=== PATIENT | male | born 1955 | race Caucasian/White ===

== ENCOUNTER 2019-12-23 09:17 | Inpatient (IN) | payer MEDICAID ==
[2019-12-23] VITALS (19 sets, daily range): BP systolic 95–141; BP diastolic 54–79
[~2019-12-23] VITALS: Ht 172.7 cm; Wt 106.0 kg
--- NOTE | 2019-12-23 11:23 | NUR ---
Received a call from Gabe air crew bringing pt to [facility]. Vitals, 122/73, 38RR, 79HR irregular afib, 94% 4L, 1127 99/76, RR40, 68 Irregular Afib, 97% 4L NC. Charge aware. Charge called edging supervisor recommending mikali to monitor.
--- NOTE | 2019-12-23 11:25 | NUR ---
Patient in room . I have received report from Joel GARCÍA [facility] and had the opportunity to ask questions and assume patient care.
[2019-12-23] MEDS ORDERED: ALBU2.5V10 IH (12:29)
[2019-12-23] MEDS ORDERED: ATOR20TA66 PO (12:29)
[2019-12-23] MEDS ORDERED: CEPH250T PO (12:30)
[2019-12-23] MEDS ORDERED: CYCL-394 PO (12:31)
[2019-12-23] MEDS ORDERED: ENOX40DI8 SQ (12:32)
[2019-12-23] MEDS ORDERED: FERR325T28 PO (12:32)
[2019-12-23] MEDS ORDERED: FAMO40TA58 PO (12:32)
[2019-12-23] MEDS ORDERED: ADV50250 IH (12:33)
[2019-12-23] MEDS ORDERED: HYDR-3965 PO (12:34)
[2019-12-23] MEDS ORDERED: IPRA3AMP31 IH (13:19)
[2019-12-23] MEDS ORDERED: SYN0.088T PO (13:19)
[2019-12-23] MEDS ORDERED: MAGN400T39 PO (13:20)
[2019-12-23] MEDS ORDERED: MUPI22OI30 TP (13:21)
[2019-12-23] MEDS ORDERED: ONDA-103 PO (13:22)
[2019-12-23] MEDS ORDERED: MORP2SYR (13:23)
[2019-12-23] MEDS ORDERED: PANT-47 PO (13:24)
[2019-12-23] MEDS ORDERED: POTA10TA19 PO (13:25)
[2019-12-23] MEDS ORDERED: PHEN95TA44 PO (13:25)
[2019-12-23] MEDS ORDERED: POLY119P2 PO (13:25)
[2019-12-23] MEDS ORDERED: TIOT18CA3 IH (13:26)
[2019-12-23] MEDS: normal saline 1000ml 1,000 ML IV SCH ×2 (13:47→21:39)
[2019-12-23] MEDS ORDERED: morphine 2 MG/ML inj. syringe IV PRN ×2 (13:50→16:05)
[2019-12-23 13:57] LABS: BASOPHILS # (AUTO) 0.1 X10'3 (0-0.2); BASOPHILS % (AUTO) 0.8 % (0-1); EOSINOPHILS # (AUTO) 0.8 X10'3 (0-0.9); EOSINOPHILS % (AUTO) 7.1 % (0-6); HEMATOCRIT 25.9 % (42.0-52.0); HEMOGLOBIN 8.8 g/dl (14.0-17.9); LYMPHOCYTES # (AUTO) 1.6 X10'3 (1.1-4.8); LYMPHOCYTES % (AUTO) 13.7 % (21-51); MEAN CORPUSCULAR HEMOGLOBIN 37.5 PG (27.0-31.0); MEAN CORPUSCULAR HGB CONC 33.9 g/dL (33.0-36.5); MEAN CORPUSCULAR VOLUME 110.4 FL (78-98); MEAN PLATELET VOLUME 8.1 FL (7.4-10.4); MONOCYTES # (AUTO) 1.3 X10'3 (0-0.9); MONOCYTES % (AUTO) 11.6 % (2-12); NEUTROPHILS # (AUTO) 7.6 X10'3 (1.8-7.7); NEUTROPHILS % (AUTO) 66.8 % (42-75); PLATELET COUNT 558 X10'3 (140-440); RED BLOOD COUNT 2.35 X10'6 (4.70-6.10); RED CELL DISTRIBUTION WIDTH 17.5 % (11.5-14.5); WHITE BLOOD COUNT 11.4 X10'3 (4.5-11.0)
[2019-12-23 14:10] LABS: PARTIAL THROMBOPLASTIN TIME 31 SECONDS (22-32)
[2019-12-23 14:14] LABS: ALANINE AMINOTRANSFERASE 8 U/L (12-78); ALBUMIN 1.5 G/DL (3.4-5.0); ALBUMIN/GLOBULIN RATIO 0.4 (1.1-1.5); ALKALINE PHOSPHATASE 98 IU/L (46-116); ANION GAP 4 (8-16); ASPARTATE AMINO TRANSFERASE 13 U/L (10-37); BILIRUBIN,TOTAL 0.6 MG/DL (0.1-1.0); BLOOD UREA NITROGEN 6 MG/DL (7-18); BUN/CREATININE RATIO 12.2 (5.4-32.0); CALCIUM 7.9 MG/DL (8.5-10.1); CHLORIDE 104 MMOL/L (99-107); CREATININE 0.49 MG/DL (0.60-1.10); GLUCOSE 82 MG/DL (70-104); POTASSIUM 4.1 MMOL/L (3.5-5.1); SODIUM 139 MMOL/L (135-145); TOTAL CARBON DIOXIDE 31.3 MMOL/L (24-32); TOTAL PROTEIN 5.2 G/DL (6.4-8.2); eGFR > 90 ML/MIN
[2019-12-23 15:01] LABS: ANISOCYTOSIS 1+; PLATELET ESTIMATE INCREASED
[2019-12-23] MEDS ORDERED: ringers solution, lacted 1,000 ML IV SCH ×2 (16:03→17:42)
[2019-12-23] MEDS ORDERED: morphine 4 MG/ML inj SYRINge IV PRN (16:05)
[2019-12-23] MEDS ORDERED: fentaNYL/PF 50MCG/1 ML 2ML syringe IV PRN ×2 (16:05)
[2019-12-23] MEDS ORDERED: ondansetron/PF 4mg/2ml inj IV PRN ×2 (16:05→17:45)
[2019-12-23] MEDS ORDERED: labetalol 20mg/4ml (5mg/ml) syringe IV PRN (16:05)
[2019-12-23] MEDS ORDERED: hydrALAZINE 20mg/ml inj. IV PRN (16:05)
[2019-12-23] MEDS ORDERED: sugammadex 200mg/2ml injection IV ONE (16:47)
[2019-12-23] MEDS ORDERED: dexamethasone sod phosphate 4mg/ml inj. ONE (16:49)
[2019-12-23] MEDS ORDERED: LIDOcaine 2% (20mg/ml) 5ml vial ONE (16:49)
[2019-12-23] MEDS ORDERED: succinylcholine 20mg/ml inj IV ONE (16:49)
[2019-12-23] MEDS ORDERED: propofol inj 20 ML IV ONE ×2 (16:49)
[2019-12-23] MEDS ORDERED: rocuronium 10mg/ml inj IV ONE ×2 (16:49→17:50)
[2019-12-23] MEDS ORDERED: fentaNYL/PF 50MCG/1 ML 2ML syringe ONE (16:51)
[2019-12-23] MEDS ORDERED: sevoflurane 250ml liquid IH ONE (16:55)
[2019-12-23] MEDS ORDERED: ondansetron/PF 4mg/2ml inj ONE ×2 (16:55→17:11)
[2019-12-23] MEDS ORDERED: ceFOXitin 1000 MG inj ONE ×2 (16:56)
[2019-12-23] MEDS ORDERED: ipratropium/albuterol 3ml nebule IH ONE (17:45)
[2019-12-23] MEDS ORDERED: racepinephrine 11.25mg/0.5ml nebule NEB ONE (17:45)
[2019-12-23] MEDS ORDERED: albuterol 2.5 MG/3 ML nebule NEB ONE (17:45)
[2019-12-23] MEDS ORDERED: LIDOcaine 1% (10mg/ml) 2ml vial ONE (17:48)
--- NOTE | 2019-12-23 18:55 | NUR ---
Received from OR via BED, accompanied by Anesthesiologist DR WILLIS and report given by Anesthesiologist. PT SEDATED ON VENT, ABDOMEN W/MEDIPORE TAPE COVERING GAUZE RICHMOND LANDRY, MALIK CATHETER TO GRAVITY DRAIN W/ORANGE URINE IN BAG. Addendum: 12/23/19 at 1932 by Daxa Brown RN Amended: Links added.
[2019-12-23 19:15] LABS: ABG BASE EXCESS 1.8 mmol/L (-2.0-2.0); ABG HCO3 27.1 mmol/L (22.0-26.0); ABG OXYGEN SATURATION 96.1 % (94-97); ABG PCO2 (T) 44.6 mmHg (35.0-48.0); ABG PO2 (T) 81.7 mmHg (75.0-100.0); FCOHb 1.4 % (0.0-3.9); FMetHb 0.3 % (0.0-1.5); FO2Hb 94.5 % (94-97); PATIENT TEMPERATURE 36.6; PEEP 5 cm H2O; RESPIRATORY RATE 12 b/min; TIDAL VOLUME 700 mL; TOTAL HEMOGLOBIN 9.4 G/dl (14.0-18.0)
[2019-12-23] MEDS: FENTANYL-0.9 % NACL/PF 100 ML IV PRN (19:43)
[2019-12-23] MEDS: midazolam 100mg in NS 100ml 100 ML IV SCH (19:44)
--- NOTE | 2019-12-23 19:55 | NUR ---
Report called to receiving nurse. Transferred via BED ON CM, RT BAGGED PT, NO Belongings, RECEIVING RN AT BEDSIDE TO RECEIVE PT, VSS. Special Issues communicated to receiving nurse. YES. Addendum: 12/23/19 at 2013 by Daxa Brown RN Amended: Links added.
--- NOTE | 2019-12-23 20:20 | NUR ---
Pt arrived to room around 1954, report received from Daxa GARCÍA, pt placed on ICU monitor, good wave form for art line. pt tolerating vent well.
[2019-12-24] VITALS (24 sets, daily range): BP systolic 85–127; BP diastolic 55–90
[2019-12-24 02:57] LABS: BASOPHILS % (AUTO) 0.2 % (0-1); EOSINOPHILS % (AUTO) 0 % (0-6); HEMATOCRIT 28.4 % (42.0-52.0); HEMOGLOBIN 9.5 g/dl (14.0-17.9); LYMPHOCYTES # (AUTO) 0.5 X10'3 (1.1-4.8); LYMPHOCYTES % (AUTO) 2.9 % (21-51); MEAN CORPUSCULAR HEMOGLOBIN 37.1 PG (27.0-31.0); MEAN CORPUSCULAR HGB CONC 33.6 g/dL (33.0-36.5); MEAN CORPUSCULAR VOLUME 110.3 FL (78-98); MEAN PLATELET VOLUME 8.7 FL (7.4-10.4); MONOCYTES # (AUTO) 0.7 X10'3 (0-0.9); MONOCYTES % (AUTO) 3.8 % (2-12); NEUTROPHILS # (AUTO) 17.6 X10'3 (1.8-7.7); NEUTROPHILS % (AUTO) 93.1 % (42-75); PLATELET COUNT 601 X10'3 (140-440); RED BLOOD COUNT 2.57 X10'6 (4.70-6.10); RED CELL DISTRIBUTION WIDTH 17.5 % (11.5-14.5); WHITE BLOOD COUNT 18.9 X10'3 (4.5-11.0)
[2019-12-24 03:08] LABS: ALBUMIN 1.4 G/DL (3.4-5.0); ANION GAP 5 (8-16); BLOOD UREA NITROGEN 7 MG/DL (7-18); BUN/CREATININE RATIO 13.7 (5.4-32.0); CALCIUM 7.8 MG/DL (8.5-10.1); CHLORIDE 105 MMOL/L (99-107); CREATININE 0.51 MG/DL (0.60-1.10); GLUCOSE 118 MG/DL (70-104); POTASSIUM 4.8 MMOL/L (3.5-5.1); SODIUM 137 MMOL/L (135-145); TOTAL CARBON DIOXIDE 27.3 MMOL/L (24-32); eGFR > 90 ML/MIN
[2019-12-24] MEDS: normal saline 1000ml 1,000 ML IV SCH ×2 (04:05→22:53)
[2019-12-24] MEDS: midazolam 100mg in NS 100ml 100 ML IV SCH ×2 (04:06→13:30)
[2019-12-24] MEDS: FENTANYL-0.9 % NACL/PF 100 ML IV PRN ×3 (04:09→21:29)
--- NOTE | 2019-12-24 06:33 | NUR ---
Problems reprioritized. Patient report given, questions answered & plan of care reviewed with Levi GARCÍA.
--- NOTE | 2019-12-24 11:24 | NUR ---
Initial: Pt intubated s/p laparotomy oversew anastomotic leak, drain, and closure of abdominal wound per surgeon note. 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 Abdominal abscess found to have fecal contents and pt remains NPO pending consent for Ileostomy per EMR at this time. R NG in place to suction. MCV 110.3 w/ hx etoh per RN today; RD d/w MD regarding banana bag if agreeable given hx. Will continue to monitor for additional protein needs post-op. If Ileostomy pt will need diet ed once stable prior to discharge. Rec: 1. IF TF; Vital AF at 75ml/hr goal 2. IF TF; additional water flush per MD; Na 137 3. PALB Q /; daily wts 4. bowel care per rx 5. thiamin, folic, MVI supplementation for etoh hx 6. IF to have Ileostomy; diet ed once stable and appropriate prior to discharge Addendum: 12/24/19 at [address] Amended: Links added.
[2019-12-24] MEDS ORDERED: sevoflurane 250ml liquid IH ONE (13:40)
[2019-12-24] MEDS ORDERED: rocuronium 10mg/ml inj IV ONE ×2 (14:10)
[2019-12-24] MEDS ORDERED: 0.9 % SODIUM CHLORIDE 10 ML VIAL ONE ×2 (14:17→14:18)
[2019-12-24] MEDS ORDERED: ceFOXitin 1000 MG inj ONE ×2 (14:17)
[2019-12-24] MEDS ORDERED: bacitracin 15gm ointment TP ONE (15:01)
[2019-12-24] MEDS ORDERED: albuterol 2.5 MG/3 ML nebule NEB PRN (18:45)
[2019-12-24] MEDS ORDERED: ipratropium 0.5 MG/2.5ML nebule IH PRN (18:55)
[2019-12-24] MEDS: ipratropium/albuterol 3ml nebule IH SCH (20:36)
[2019-12-24] MEDS: budesonide 0.5mg/2ml UD nebule IH SCH (20:36)
[2019-12-24] MEDS: atorvastatin 20mg tablet PO SCH (20:42)
[2019-12-25] VITALS (24 sets, daily range): BP systolic 75–137; BP diastolic 45–79
[2019-12-25] MEDS: midazolam 100mg in NS 100ml 100 ML IV SCH ×2 (00:05→07:42)
[2019-12-25 03:21] LABS: BASOPHILS % (AUTO) 0.2 % (0-1); EOSINOPHILS % (AUTO) 0 % (0-6); HEMATOCRIT 28.2 % (42.0-52.0); HEMOGLOBIN 9.4 g/dl (14.0-17.9); LYMPHOCYTES % (AUTO) 5.4 % (21-51); MEAN CORPUSCULAR HEMOGLOBIN 37.1 PG (27.0-31.0); MEAN CORPUSCULAR HGB CONC 33.4 g/dL (33.0-36.5); MEAN PLATELET VOLUME 8.7 FL (7.4-10.4); MONOCYTES # (AUTO) 1.4 X10'3 (0-0.9); MONOCYTES % (AUTO) 8.1 % (2-12); NEUTROPHILS # (AUTO) 15.4 X10'3 (1.8-7.7); NEUTROPHILS % (AUTO) 86.3 % (42-75); PLATELET COUNT 520 X10'3 (140-440); RED BLOOD COUNT 2.54 X10'6 (4.70-6.10); RED CELL DISTRIBUTION WIDTH 17.3 % (11.5-14.5); WHITE BLOOD COUNT 17.9 X10'3 (4.5-11.0)
[2019-12-25 03:32] LABS: ALBUMIN 1.3 G/DL (3.4-5.0); ANION GAP 7 (8-16); BLOOD UREA NITROGEN 15 MG/DL (7-18); BUN/CREATININE RATIO 23.1 (5.4-32.0); CALCIUM 7.9 MG/DL (8.5-10.1); CHLORIDE 106 MMOL/L (99-107); CREATININE 0.65 MG/DL (0.60-1.10); GLUCOSE 108 MG/DL (70-104); SODIUM 139 MMOL/L (135-145); TOTAL CARBON DIOXIDE 26.4 MMOL/L (24-32); eGFR > 90 ML/MIN
[2019-12-25] MEDS: ipratropium/albuterol 3ml nebule IH SCH ×4 (03:34→21:04)
[2019-12-25 03:40] LABS: POTASSIUM 4.8 MMOL/L (3.5-5.1)
[2019-12-25 03:50] LABS: ABG BASE EXCESS -0.1 mmol/L (-2.0-2.0); ABG HCO3 24.9 mmol/L (22.0-26.0); ABG OXYGEN SATURATION 94.6 % (94-97); ABG PCO2 (T) 42.9 mmHg (35.0-48.0); ABG PO2 (T) 77.5 mmHg (75.0-100.0); FCOHb 1.5 % (0.0-3.9); FMetHb 0.3 % (0.0-1.5); FO2Hb 92.9 % (94-97); PATIENT TEMPERATURE 37.5; PEEP 5 cm H2O; RESPIRATORY RATE 12 b/min; TIDAL VOLUME 700 mL; TOTAL HEMOGLOBIN 9.1 G/dl (14.0-18.0)
[2019-12-25 04:10] LABS: PLATELET ESTIMATE INCREASED
[2019-12-25 04:11] LABS: ANISOCYTOSIS 1+
[2019-12-25 04:12] LABS: SCHISTOCYTES FEW; TARGET CELLS FEW
[2019-12-25 04:13] LABS: POLYCHROMASIA FEW
[2019-12-25 04:16] LABS: POIKILOCYTOSIS 1+; STOMATOCYTES 1+
--- NOTE | 2019-12-25 06:24 | NUR ---
Problems reprioritized. Patient report given, questions answered & plan of care reviewed with Levi GARCÍA.
[2019-12-25] MEDS: levoTHYROXINE 88mcg tablet PO SCH (07:41)
[2019-12-25] MEDS: ferrous sulfate 325mg tablet PO SCH (07:41)
[2019-12-25] MEDS: normal saline 1000ml 1,000 ML IV SCH ×2 (07:42→17:50)
[2019-12-25] MEDS: FENTANYL-0.9 % NACL/PF 100 ML IV PRN ×2 (07:43→18:45)
[2019-12-25] MEDS: budesonide 0.5mg/2ml UD nebule IH SCH ×2 (08:21→21:04)
[2019-12-25] MEDS ORDERED: dexmedetomidin/NS 400mcg/100ml 100 ML IV SCH (10:05)
[2019-12-25] MEDS: dexmedetomidine/D5W 100mL 100 ML IV SCH ×3 (11:16→23:58)
[2019-12-25] MEDS: vancomycin/NS 1 GM ADD-VANTAGE 250 ML X 1 DOSE IV SCH ×2 (12:27→21:09)
[2019-12-25] MEDS: thiamine inj. 100 MG, magnesium sulf injection 2 GM, MVI, adult No.4 with vit. K 10 ML ... IV SCH ×4 (12:28)
[2019-12-25] MEDS: folic acid 1mg/0.2ml inj IV SCH (12:28)
[2019-12-25] MEDS ORDERED: albumin (human) 25% 100 ML IV solution IV ONE (16:10)
[2019-12-25 16:15] LABS: ABG BASE EXCESS 0.1 mmol/L (-2.0-2.0); ABG HCO3 24.4 mmol/L (22.0-26.0); ABG OXYGEN SATURATION 90.9 % (94-97); ABG PCO2 (T) 38.2 mmHg (35.0-48.0); ABG PO2 (T) 60.7 mmHg (75.0-100.0); ALLEN'S TEST POSITIVE; FCOHb 1.7 % (0.0-3.9); FMetHb 0.3 % (0.0-1.5); FO2Hb 89.1 % (94-97); PEEP 5 cm H2O; RESPIRATORY RATE 12 b/min; TIDAL VOLUME 700 mL; TOTAL HEMOGLOBIN 12.2 G/dl (14.0-18.0)
[2019-12-25] MEDS: NORepinephrine 8mg/ 250ml NS 250 ML IV PRN (17:50)
[2019-12-25] MEDS: pantoprazole 40 MG vial IV SCH (17:50)
[2019-12-25] MEDS: piperacillin/tazobactam inj. 3.375 GM in NS 50ml IV SCH (17:50)
--- NOTE | 2019-12-25 18:30 | NUR ---
Patient in room ICU 2046. I have received report from Levi GARCÍA and had the opportunity to ask questions and assume patient care.
--- NOTE | 2019-12-25 19:50 | NUR ---
Per report from previous nurse, order was received to place PT on FloTrac. Both primary RN and Resource RN were at bedside attempting to trouble shoot the Arterial line in PT's LT radial. The wave form appeared dampened on the monitor. After report was received nursing went to assess the A-Line. After multiple attempts to save the line which included repositioning, replacing the drsg and repositioning, all attempts with no effect. The line would not draw. The line was then D/C'd. Drsg placed over site and manual pressure held until hemostasis achieved. VSS. Will continue to monitor.
[2019-12-25] MEDS: atorvastatin 20mg tablet PO SCH (21:08)
[2019-12-26] VITALS (24 sets, daily range): BP systolic 81–138; BP diastolic 50–76
[2019-12-26] MEDS: normal saline 1000ml 1,000 ML IV SCH ×3 (01:47→21:47)
[2019-12-26] MEDS: ipratropium/albuterol 3ml nebule IH SCH ×4 (03:13→20:53)
[2019-12-26 03:56] LABS: BASOPHILS % (AUTO) 0.2 % (0-1); EOSINOPHILS % (AUTO) 0.1 % (0-6); HEMOGLOBIN 7.2 g/dl (14.0-17.9); LYMPHOCYTES # (AUTO) 1.2 X10'3 (1.1-4.8); LYMPHOCYTES % (AUTO) 8.8 % (21-51); MEAN CORPUSCULAR HGB CONC 33.4 g/dL (33.0-36.5); MEAN CORPUSCULAR VOLUME 110.8 FL (78-98); MEAN PLATELET VOLUME 7.9 FL (7.4-10.4); MONOCYTES # (AUTO) 1.1 X10'3 (0-0.9); MONOCYTES % (AUTO) 7.9 % (2-12); NEUTROPHILS # (AUTO) 11.6 X10'3 (1.8-7.7); PLATELET COUNT 416 X10'3 (140-440); RED BLOOD COUNT 1.93 X10'6 (4.70-6.10)
[2019-12-26 04:02] LABS: ALANINE AMINOTRANSFERASE 13 U/L (12-78); ALBUMIN 1.4 G/DL (3.4-5.0); ALBUMIN/GLOBULIN RATIO 0.4 (1.1-1.5); ALKALINE PHOSPHATASE 71 IU/L (46-116); ANION GAP 5 (8-16); ASPARTATE AMINO TRANSFERASE 13 U/L (10-37); BILIRUBIN,TOTAL 0.4 MG/DL (0.1-1.0); BLOOD UREA NITROGEN 16 MG/DL (7-18); BUN/CREATININE RATIO 22.5 (5.4-32.0); CALCIUM 7.6 MG/DL (8.5-10.1); CHLORIDE 107 MMOL/L (99-107); CREATININE 0.71 MG/DL (0.60-1.10); GLUCOSE 120 MG/DL (70-104); MAGNESIUM 2.1 MG/DL (1.5-2.4); PHOSPHORUS 3.2 MG/DL (2.3-4.5); POTASSIUM 3.9 MMOL/L (3.5-5.1); SODIUM 140 MMOL/L (135-145); TOTAL CARBON DIOXIDE 27.7 MMOL/L (24-32); TOTAL PROTEIN 4.7 G/DL (6.4-8.2); eGFR > 90 ML/MIN
[2019-12-26 04:03] LABS: HEMATOCRIT 21.4 % (42.0-52.0)
[2019-12-26 04:05] LABS: ANISOCYTOSIS 1+; PLATELET ESTIMATE NORMAL; POIKILOCYTOSIS 1+
[2019-12-26 04:06] LABS: SCHISTOCYTES FEW; TARGET CELLS FEW
[2019-12-26 04:10] LABS: ABG BASE EXCESS -0.1 mmol/L (-2.0-2.0); ABG HCO3 24.6 mmol/L (22.0-26.0); ABG PCO2 (T) 39.9 mmHg (35.0-48.0); ABG PO2 (T) 56.7 mmHg (75.0-100.0); FCOHb 1.5 % (0.0-3.9); FMetHb 0.3 % (0.0-1.5); FO2Hb 86.4 % (94-97); PATIENT TEMPERATURE 36.8; PEEP 5 cm H2O; RESPIRATORY RATE 12 b/min; TIDAL VOLUME 700 mL; TOTAL HEMOGLOBIN 7.5 G/dl (14.0-18.0)
--- NOTE | 2019-12-26 04:19 | NUR ---
Received critical Hct of 21.4. PRICE CLERK Nomi notified and orders received. VSS. Will continue to monitor.
[2019-12-26] MEDS: FENTANYL-0.9 % NACL/PF 100 ML IV PRN (04:41)
[2019-12-26] MEDS: vancomycin/NS 1 GM ADD-VANTAGE 250 ML X 1 DOSE IV SCH ×3 (04:43→20:38)
[2019-12-26] MEDS: dexmedetomidine/D5W 100mL 100 ML IV SCH ×2 (06:14→19:13)
--- NOTE | 2019-12-26 06:15 | NUR ---
Problems reprioritized. Patient report given, questions answered & plan of care reviewed with Dio GARCÍA.
--- NOTE | 2019-12-26 06:30 | NUR ---
Problems reprioritized. Patient report given, questions answered & plan of care reviewed with [].
--- NOTE | 2019-12-26 06:30 | NUR ---
Patient in room ICU 2046. I have received report from RICKY Quintero and had the opportunity to ask questions and assume patient care.
[2019-12-26] MEDS: piperacillin/tazobactam inj. 3.375 GM in NS 50ml IV SCH ×3 (08:42→15:56)
[2019-12-26] MEDS: thiamine inj. 100 MG, magnesium sulf injection 2 GM, MVI, adult No.4 with vit. K 10 ML ... IV SCH ×4 (08:42)
[2019-12-26 08:54] LABS: HEMOGLOBIN 7.2 g/dl (14.0-17.9); MEAN CORPUSCULAR HEMOGLOBIN 35.8 PG (27.0-31.0); MEAN CORPUSCULAR HGB CONC 32.7 g/dL (33.0-36.5); MEAN CORPUSCULAR VOLUME 109.3 FL (78-98); MEAN PLATELET VOLUME 7.8 FL (7.4-10.4); PLATELET COUNT 402 X10'3 (140-440); RED BLOOD COUNT 2.01 X10'6 (4.70-6.10); WHITE BLOOD COUNT 14.5 X10'3 (4.5-11.0)
[2019-12-26] MEDS: pantoprazole 40 MG vial IV SCH (08:58)
[2019-12-26] MEDS: folic acid 1mg/0.2ml inj IV SCH (08:59)
[2019-12-26 09:01] LABS: HEMATOCRIT 21.9 % (42.0-52.0)
[2019-12-26] MEDS: ferrous sulfate 325mg tablet PO SCH (09:02)
[2019-12-26] MEDS: levoTHYROXINE 88mcg tablet PO SCH (09:02)
[2019-12-26] MEDS: budesonide 0.5mg/2ml UD nebule IH SCH ×2 (09:52→20:53)
[2019-12-26] MEDS: NORepinephrine 8mg/ 250ml NS 250 ML IV PRN (10:05)
[2019-12-26] MEDS ORDERED: VANCOMYCIN LEVEL IV ONE (11:30)
[2019-12-26 11:49] LABS: IRON 26 UG/DL (53-167)
--- NOTE | 2019-12-26 12:30 | NUR ---
Patient in room ICU 2046. I have received report from RICKY Wharton and had the opportunity to ask questions and assume patient care.
[2019-12-26 13:45] LABS: % IRON SATURATION 31 % (11-46); TOTAL IRON BINDING CAPACITY 84 UG/DL (259-388)
[2019-12-26] MEDS: sodium ferric gluc complex inj 125 MG in normal saline 100ml IV soln 90 ML IV SCH (14:24)
--- NOTE | 2019-12-26 15:28 | NUR ---
TPN consult: Patient has absent bowel sounds, no air in ileostomy bag per bedside RN, no BM s/p surgery. NPO day 3, in view of increased protein needs r/t surgery and on vent patient would benefit from nutrition support. Pt will be given TPN in view of absent bowel sounds per MD at rounds likely no nutrition via enteral route over weekend. Recommendations below. Will meet calorie needs for IBW however unable to meet protein needs given available formula of Clinimix 5/20 without providing hypercaloric TPN and overfeeding on ventilation. Pt intubated s/p laparotomy oversew anastomotic leak, drain, and closure of abdominal wound per surgeon note. 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 Rec: 1. Continuous 3:1 TPN using Clininmix E 5/20 with 50 ml additional 20% intralipids at 90 ml/hr will provide total volume 2160 ml, 1537 non protein, 1958 total cals, 105 g protein, 421 dextrose, 2.416 mg/kg/min CHO loading. 2. Prealbumin/TG q sunday and 3. Daily weights 4. When OK per surgeon to start enteral nutrition and if to proceed with TF as able would recommend Vital AF at 75ml/hr goal 5. PALB Q /; daily wts 6. bowel care per rx 7. thiamin, folic, MVI supplementation for etoh hx 8. Ileostomy diet ed once stable and appropriate prior to discharge Addendum: 12/26/19 at [address] Amended: Links added.
[2019-12-26] MEDS ORDERED: Dextrose 10%-water IV solution 1,000 ML IV PRN (15:52)
[2019-12-26] MEDS ORDERED: magnesium 4gm in 100ml NS 100 ML IV PRN (15:55)
[2019-12-26] MEDS ORDERED: magnesium Cl slow-release 64mg tablet PO PRN (15:55)
[2019-12-26] MEDS ORDERED: magnesium 2GM in 50ml NS 50 ML IV PRN (15:55)
--- NOTE | 2019-12-26 17:51 | NUR ---
New orders from [facility] for TPN feedings
[2019-12-26] MEDS ORDERED: [UNRECOGNIZED DRUG - REMARK] IV SCH ×4 (18:00)
--- NOTE | 2019-12-26 18:16 | NUR ---
Problems reprioritized. Patient report given, questions answered & plan of care reviewed with Toña Hawley.
[2019-12-26] MEDS: atorvastatin 20mg tablet PO SCH (20:38)
[2019-12-27] VITALS (28 sets, daily range): BP systolic 90–123; BP diastolic 56–77
[2019-12-27] MEDS: piperacillin/tazobactam inj. 3.375 GM in NS 50ml IV SCH ×3 (00:47→16:09)
[2019-12-27] MEDS: FENTANYL-0.9 % NACL/PF 100 ML IV PRN ×2 (00:48→14:03)
[2019-12-27 03:14] LABS: BASOPHILS # (AUTO) 0.1 X10'3 (0-0.2); BASOPHILS % (AUTO) 0.6 % (0-1); EOSINOPHILS # (AUTO) 0.3 X10'3 (0-0.9); EOSINOPHILS % (AUTO) 2.6 % (0-6); LYMPHOCYTES # (AUTO) 1.4 X10'3 (1.1-4.8); LYMPHOCYTES % (AUTO) 10.9 % (21-51); MEAN CORPUSCULAR HEMOGLOBIN 37.1 PG (27.0-31.0); MEAN CORPUSCULAR HGB CONC 33.3 g/dL (33.0-36.5); MEAN CORPUSCULAR VOLUME 111.4 FL (78-98); MEAN PLATELET VOLUME 8.3 FL (7.4-10.4); MONOCYTES # (AUTO) 0.9 X10'3 (0-0.9); MONOCYTES % (AUTO) 7.3 % (2-12); NEUTROPHILS % (AUTO) 78.6 % (42-75); PLATELET COUNT 370 X10'3 (140-440); RED BLOOD COUNT 1.89 X10'6 (4.70-6.10); RED CELL DISTRIBUTION WIDTH 17.5 % (11.5-14.5); WHITE BLOOD COUNT 12.7 X10'3 (4.5-11.0)
[2019-12-27] MEDS: ipratropium/albuterol 3ml nebule IH SCH ×4 (03:17→21:02)
[2019-12-27 03:22] LABS: HEMATOCRIT 21.1 % (42.0-52.0)
[2019-12-27 03:23] LABS: ALBUMIN 1.3 G/DL (3.4-5.0); ANION GAP 4 (8-16); BLOOD UREA NITROGEN 9 MG/DL (7-18); BUN/CREATININE RATIO 17.3 (5.4-32.0); CHLORIDE 109 MMOL/L (99-107); CREATININE 0.52 MG/DL (0.60-1.10); GLUCOSE 119 MG/DL (70-104); POTASSIUM 3.2 MMOL/L (3.5-5.1); SODIUM 140 MMOL/L (135-145); TOTAL CARBON DIOXIDE 26.9 MMOL/L (24-32); eGFR > 90 ML/MIN
[2019-12-27] MEDS: dexmedetomidine/D5W 100mL 100 ML IV SCH ×3 (03:29→20:11)
[2019-12-27 03:36] LABS: ABG BASE EXCESS -0.4 mmol/L (-2.0-2.0); ABG HCO3 23.8 mmol/L (22.0-26.0); ABG OXYGEN SATURATION 95.8 % (94-97); ABG PCO2 (T) 36.7 mmHg (35.0-48.0); ABG PO2 (T) 80.1 mmHg (75.0-100.0); ALLEN'S TEST POSITIVE; FCOHb 1.4 % (0.0-3.9); FMetHb 0.3 % (0.0-1.5); FO2Hb 94.2 % (94-97); PATIENT TEMPERATURE 36.8; RESPIRATORY RATE 12 b/min; TIDAL VOLUME 700 mL; TOTAL HEMOGLOBIN 7.9 G/dl (14.0-18.0)
[2019-12-27] MEDS ORDERED: potassium CL 10mEq/100ml bag 100 ML IV PRN (04:25)
[2019-12-27] MEDS: potassium Cl 20mEq/100mL bag 100 ML IV PRN ×2 (04:42→05:57)
[2019-12-27] MEDS: vancomycin/NS 1 GM ADD-VANTAGE 250 ML X 1 DOSE IV SCH ×3 (04:42→20:31)
[2019-12-27] MEDS: budesonide 0.5mg/2ml UD nebule IH SCH ×2 (07:19→21:02)
[2019-12-27] MEDS: ferrous sulfate 325mg tablet PO SCH (07:42)
[2019-12-27] MEDS: pantoprazole 40 MG vial IV SCH (07:42)
[2019-12-27] MEDS: thiamine inj. 100 MG, magnesium sulf injection 2 GM, MVI, adult No.4 with vit. K 10 ML ... IV SCH ×4 (07:42)
[2019-12-27] MEDS: levoTHYROXINE 88mcg tablet PO SCH (07:42)
[2019-12-27] MEDS: folic acid 1mg/0.2ml inj IV SCH (07:45)
[2019-12-27] MEDS: sodium ferric gluc complex inj 125 MG in normal saline 100ml IV soln 90 ML IV SCH (09:40)
[2019-12-27] MEDS: normal saline 1000ml 1,000 ML IV SCH ×2 (09:41→19:08)
[2019-12-27] MEDS: midazolam 100mg in NS 100ml 100 ML IV SCH (17:45)
[2019-12-27] MEDS: [UNRECOGNIZED DRUG - REMARK] IV SCH ×4 (19:19)
[2019-12-27] MEDS: atorvastatin 20mg tablet PO SCH (20:31)
[2019-12-28] VITALS (24 sets, daily range): BP systolic 89–116; BP diastolic 54–80
[2019-12-28] MEDS: piperacillin/tazobactam inj. 3.375 GM in NS 50ml IV SCH ×4 (00:08→23:15)
[2019-12-28] MEDS: dexmedetomidine/D5W 100mL 100 ML IV SCH ×4 (01:14→22:49)
[2019-12-28] MEDS: FENTANYL-0.9 % NACL/PF 100 ML IV PRN ×2 (01:36→17:42)
[2019-12-28 02:57] LABS: BASOPHILS # (AUTO) 0.1 X10'3 (0-0.2); BASOPHILS % (AUTO) 0.6 % (0-1); EOSINOPHILS # (AUTO) 0.9 X10'3 (0-0.9); EOSINOPHILS % (AUTO) 7.1 % (0-6); HEMATOCRIT 22.4 % (42.0-52.0); HEMOGLOBIN 7.3 g/dl (14.0-17.9); LYMPHOCYTES # (AUTO) 1.6 X10'3 (1.1-4.8); LYMPHOCYTES % (AUTO) 13.4 % (21-51); MEAN CORPUSCULAR HEMOGLOBIN 36.4 PG (27.0-31.0); MEAN CORPUSCULAR HGB CONC 32.8 g/dL (33.0-36.5); MEAN CORPUSCULAR VOLUME 111.2 FL (78-98); MEAN PLATELET VOLUME 8.1 FL (7.4-10.4); MONOCYTES # (AUTO) 0.8 X10'3 (0-0.9); MONOCYTES % (AUTO) 6.7 % (2-12); NEUTROPHILS # (AUTO) 8.7 X10'3 (1.8-7.7); NEUTROPHILS % (AUTO) 72.2 % (42-75); PLATELET COUNT 368 X10'3 (140-440); RED BLOOD COUNT 2.02 X10'6 (4.70-6.10); RED CELL DISTRIBUTION WIDTH 16.7 % (11.5-14.5)
[2019-12-28] MEDS: ipratropium/albuterol 3ml nebule IH SCH ×4 (02:59→20:51)
[2019-12-28 03:07] LABS: ALBUMIN 1.2 G/DL (3.4-5.0); ANION GAP 6 (8-16); BLOOD UREA NITROGEN 10 MG/DL (7-18); BUN/CREATININE RATIO 18.9 (5.4-32.0); CALCIUM 7.5 MG/DL (8.5-10.1); CHLORIDE 107 MMOL/L (99-107); CREATININE 0.53 MG/DL (0.60-1.10); GLUCOSE 164 MG/DL (70-104); MAGNESIUM 1.8 MG/DL (1.5-2.4); POTASSIUM 3.3 MMOL/L (3.5-5.1); SODIUM 139 MMOL/L (135-145); TOTAL CARBON DIOXIDE 26.1 MMOL/L (24-32); eGFR > 90 ML/MIN
[2019-12-28 03:10] LABS: ABG BASE EXCESS 0.5 mmol/L (-2.0-2.0); ABG HCO3 24.2 mmol/L (22.0-26.0); ABG OXYGEN SATURATION 96.5 % (94-97); ABG PCO2 (T) 35.4 mmHg (35.0-48.0); ABG PO2 (T) 86.1 mmHg (75.0-100.0); ALLEN'S TEST POSITIVE; FMetHb 0.3 % (0.0-1.5); FO2Hb 95.2 % (94-97); PATIENT TEMPERATURE 37.5; RESPIRATORY RATE 12 b/min; TIDAL VOLUME 700 mL; TOTAL HEMOGLOBIN 8.5 G/dl (14.0-18.0)
[2019-12-28] MEDS: potassium Cl 20mEq/100mL bag 100 ML IV PRN ×2 (04:37→05:45)
[2019-12-28] MEDS: NORepinephrine 8mg/ 250ml NS 250 ML IV PRN (04:38)
[2019-12-28] MEDS: vancomycin/NS 1 GM ADD-VANTAGE 250 ML X 1 DOSE IV SCH ×3 (04:41→20:02)
--- NOTE | 2019-12-28 06:26 | NUR ---
Problems reprioritized. Patient report given, questions answered & plan of care reviewed with Taylor GARCÍA.
--- NOTE | 2019-12-28 06:30 | NUR ---
Received report from RICKY Hawley
[2019-12-28] MEDS: budesonide 0.5mg/2ml UD nebule IH SCH ×2 (07:21→20:52)
[2019-12-28] MEDS: levoTHYROXINE 88mcg tablet PO SCH (09:20)
[2019-12-28] MEDS: ferrous sulfate 325mg tablet PO SCH (09:20)
[2019-12-28] MEDS: pantoprazole 40 MG vial IV SCH (09:20)
[2019-12-28] MEDS: thiamine inj. 100 MG, magnesium sulf injection 2 GM, MVI, adult No.4 with vit. K 10 ML ... IV SCH ×4 (09:21)
[2019-12-28] MEDS: folic acid 1mg/0.2ml inj IV SCH (09:22)
[2019-12-28] MEDS ORDERED: albumin (human) 25% 100 ML IV solution IV ONE (10:10)
[2019-12-28] MEDS: sodium ferric gluc complex inj 125 MG in normal saline 100ml IV soln 90 ML IV SCH (10:13)
[2019-12-28] MEDS: [UNRECOGNIZED DRUG - REMARK] IV SCH ×4 (17:17)
--- NOTE | 2019-12-28 18:33 | NUR ---
Report given to RICKY Hawley
[2019-12-28] MEDS: atorvastatin 20mg tablet PO SCH (20:02)
[2019-12-28] MEDS: furosemide 40mg/4ml inj IV SCH (20:02)
[2019-12-28] MEDS: lactobacillus rhamnosus 10,000 MMU CELLS/CAPSULE PO SCH (20:02)
[2019-12-29] VITALS (24 sets, daily range): BP systolic 80–113; BP diastolic 46–75
[2019-12-29] MEDS: ipratropium/albuterol 3ml nebule IH SCH ×4 (02:58→19:21)
[2019-12-29 03:10] LABS: ABG BASE EXCESS 2.4 mmol/L (-2.0-2.0); ABG HCO3 27.4 mmol/L (22.0-26.0); ABG OXYGEN SATURATION 93.2 % (94-97); ABG PCO2 (T) 45.3 mmHg (35.0-48.0); ABG PO2 (T) 74.8 mmHg (75.0-100.0); ALLEN'S TEST POSITIVE; FCOHb 0.8 % (0.0-3.9); FMetHb 0.3 % (0.0-1.5); FO2Hb 92.2 % (94-97); PATIENT TEMPERATURE 37.5; PEEP 5 cm H2O; TOTAL HEMOGLOBIN 9.1 G/dl (14.0-18.0)
[2019-12-29 04:39] LABS: MAGNESIUM 1.5 MG/DL (1.5-2.4); PREALBUMIN 9.6 MG/DL (19-36); TRIGLYCERIDES 62 MG/DL (20-135)
[2019-12-29] MEDS: vancomycin/NS 1 GM ADD-VANTAGE 250 ML X 1 DOSE IV SCH ×3 (04:46→20:12)
[2019-12-29 04:58] LABS: BASOPHILS # (AUTO) 0.1 X10'3 (0-0.2); BASOPHILS % (AUTO) 0.7 % (0-1); EOSINOPHILS # (AUTO) 1.1 X10'3 (0-0.9); EOSINOPHILS % (AUTO) 7.2 % (0-6); HEMATOCRIT 22.3 % (42.0-52.0); HEMOGLOBIN 7.4 g/dl (14.0-17.9); LYMPHOCYTES # (AUTO) 1.6 X10'3 (1.1-4.8); LYMPHOCYTES % (AUTO) 10.7 % (21-51); MEAN CORPUSCULAR HEMOGLOBIN 36.8 PG (27.0-31.0); MEAN CORPUSCULAR HGB CONC 33.1 g/dL (33.0-36.5); MEAN CORPUSCULAR VOLUME 111.2 FL (78-98); MEAN PLATELET VOLUME 8.4 FL (7.4-10.4); MONOCYTES # (AUTO) 0.8 X10'3 (0-0.9); MONOCYTES % (AUTO) 5.4 % (2-12); NEUTROPHILS # (AUTO) 11.5 X10'3 (1.8-7.7); PLATELET COUNT 344 X10'3 (140-440); RED BLOOD COUNT 2.01 X10'6 (4.70-6.10); RED CELL DISTRIBUTION WIDTH 16.9 % (11.5-14.5); WHITE BLOOD COUNT 15.1 X10'3 (4.5-11.0)
[2019-12-29 04:58] LABS: ALANINE AMINOTRANSFERASE 24 U/L (12-78); ALBUMIN 1.4 G/DL (3.4-5.0); ALBUMIN/GLOBULIN RATIO 0.4 (1.1-1.5); ALKALINE PHOSPHATASE 78 IU/L (46-116); ANION GAP 4 (8-16); ASPARTATE AMINO TRANSFERASE 18 U/L (10-37); BILIRUBIN,TOTAL 0.4 MG/DL (0.1-1.0); BLOOD UREA NITROGEN 11 MG/DL (7-18); BUN/CREATININE RATIO 18.3 (5.4-32.0); CALCIUM 7.7 MG/DL (8.5-10.1); CHLORIDE 104 MMOL/L (99-107); GLUCOSE 180 MG/DL (70-104); POTASSIUM 3.2 MMOL/L (3.5-5.1); SODIUM 138 MMOL/L (135-145); TOTAL CARBON DIOXIDE 29.7 MMOL/L (24-32); TOTAL PROTEIN 4.7 G/DL (6.4-8.2); eGFR > 90 ML/MIN
--- NOTE | 2019-12-29 06:29 | NUR ---
Received report from RICKY Hawley
[2019-12-29] MEDS: potassium Cl 20mEq/100mL bag 100 ML IV PRN ×4 (07:41→14:21)
[2019-12-29] MEDS: pantoprazole 40 MG vial IV SCH (07:51)
[2019-12-29] MEDS: piperacillin/tazobactam inj. 3.375 GM in NS 50ml IV SCH ×2 (07:51→16:56)
[2019-12-29] MEDS: lactobacillus rhamnosus 10,000 MMU CELLS/CAPSULE PO SCH ×2 (07:51→20:11)
[2019-12-29] MEDS: ferrous sulfate 325mg tablet PO SCH (07:51)
[2019-12-29] MEDS: levoTHYROXINE 88mcg tablet PO SCH (07:51)
[2019-12-29] MEDS: furosemide 40mg/4ml inj IV SCH ×2 (07:51→19:58)
[2019-12-29] MEDS: folic acid 1mg/0.2ml inj IV SCH (07:51)
[2019-12-29] MEDS: thiamine inj. 100 MG, magnesium sulf injection 2 GM, MVI, adult No.4 with vit. K 10 ML ... IV SCH ×4 (07:51)
[2019-12-29] MEDS: budesonide 0.5mg/2ml UD nebule IH SCH ×2 (08:50→19:21)
[2019-12-29] MEDS ORDERED: midazolam 100mg in NS 100ml 100 ML IV SCH (11:43)
[2019-12-29] MEDS: dexmedetomidine/D5W 100mL 100 ML IV SCH ×2 (12:38→21:37)
--- NOTE | 2019-12-29 13:48 | NUR ---
Reassessment: Patient receiving TPN. Documented ileostomy output however patient possibly returning to OR. Recommend to continue TPN until no longer returning to OR to maintain optimal nutrition while on vent and increased protein needs r/t surgery. Rec: 1. Continuous 3:1 TPN using Clininmix E 08/26 with 50 ml additional 20% intralipids at 90 ml/hr will provide total volume 2160 ml, 1537 non protein, 1958 total cals, 105 g protein, 421 dextrose, 2.416 mg/kg/min CHO loading. 2. Prealbumin/TG q sunday and 3. Daily weights 4. When OK per surgeon to start enteral nutrition and if to proceed with TF as able would recommend Vital AF at 75ml/hr goal 5. PALB Q /; daily wts 6. bowel care per rx 7. thiamin, folic, MVI supplementation for etoh hx 8. Ileostomy diet ed once stable and appropriate prior to discharge Addendum: 12/29/19 at [address] Amended: Links added.
[2019-12-29] MEDS: FENTANYL-0.9 % NACL/PF 100 ML IV PRN (13:53)
[2019-12-29] MEDS: [UNRECOGNIZED DRUG - REMARK] IV SCH ×4 (16:56)
[2019-12-29] MEDS: normal saline 1000ml 1,000 ML IV SCH (19:08)
[2019-12-29] MEDS ORDERED: albumin (Human) 5% 250ml 250 ML IV ONE ×2 (20:00)
[2019-12-29] MEDS: atorvastatin 20mg tablet PO SCH (20:11)
[2019-12-30] VITALS (22 sets, daily range): BP systolic 82–122; BP diastolic 50–72
[2019-12-30] MEDS: piperacillin/tazobactam inj. 3.375 GM in NS 50ml IV SCH ×3 (00:24→15:28)
[2019-12-30] MEDS: ipratropium/albuterol 3ml nebule IH SCH ×4 (02:50→21:09)
[2019-12-30 03:33] LABS: BASOPHILS # (AUTO) 0.1 X10'3 (0-0.2); BASOPHILS % (AUTO) 0.7 % (0-1); EOSINOPHILS # (AUTO) 0.9 X10'3 (0-0.9); LYMPHOCYTES # (AUTO) 1.8 X10'3 (1.1-4.8); LYMPHOCYTES % (AUTO) 13.4 % (21-51); MEAN CORPUSCULAR HEMOGLOBIN 37.2 PG (27.0-31.0); MEAN CORPUSCULAR HGB CONC 33.8 g/dL (33.0-36.5); MEAN CORPUSCULAR VOLUME 110.2 FL (78-98); MEAN PLATELET VOLUME 8.4 FL (7.4-10.4); MONOCYTES # (AUTO) 0.8 X10'3 (0-0.9); MONOCYTES % (AUTO) 5.9 % (2-12); NEUTROPHILS # (AUTO) 9.6 X10'3 (1.8-7.7); PLATELET COUNT 334 X10'3 (140-440); RED BLOOD COUNT 1.87 X10'6 (4.70-6.10); RED CELL DISTRIBUTION WIDTH 17.6 % (11.5-14.5); WHITE BLOOD COUNT 13.1 X10'3 (4.5-11.0)
[2019-12-30 03:34] LABS: ALANINE AMINOTRANSFERASE 29 U/L (12-78); ALBUMIN 1.7 G/DL (3.4-5.0); ALBUMIN/GLOBULIN RATIO 0.5 (1.1-1.5); ALKALINE PHOSPHATASE 80 IU/L (46-116); ANION GAP 5 (8-16); ASPARTATE AMINO TRANSFERASE 21 U/L (10-37); BILIRUBIN,TOTAL 0.5 MG/DL (0.1-1.0); BLOOD UREA NITROGEN 13 MG/DL (7-18); BUN/CREATININE RATIO 23.2 (5.4-32.0); CALCIUM 7.6 MG/DL (8.5-10.1); CHLORIDE 104 MMOL/L (99-107); CREATININE 0.56 MG/DL (0.60-1.10); GLUCOSE 176 MG/DL (70-104); MAGNESIUM 1.8 MG/DL (1.5-2.4); POTASSIUM 3.6 MMOL/L (3.5-5.1); SODIUM 138 MMOL/L (135-145); TOTAL PROTEIN 4.9 G/DL (6.4-8.2); eGFR > 90 ML/MIN
[2019-12-30 03:56] LABS: HEMATOCRIT 20.7 % (42.0-52.0)
[2019-12-30 04:11] LABS: ABG BASE EXCESS 3.9 mmol/L (-2.0-2.0); ABG HCO3 27.4 mmol/L (22.0-26.0); ABG OXYGEN SATURATION 91.8 % (94-97); ABG PCO2 (T) 37.1 mmHg (35.0-48.0); ABG PO2 (T) 64.7 mmHg (75.0-100.0); ALLEN'S TEST POSITIVE; FMetHb 0.3 % (0.0-1.5); FO2Hb 90.6 % (94-97); PATIENT TEMPERATURE 37.4; PEEP 5 cm H2O; RESPIRATORY RATE 12 b/min; TIDAL VOLUME 575 mL; TOTAL HEMOGLOBIN 7.1 G/dl (14.0-18.0)
[2019-12-30] MEDS: vancomycin/NS 1 GM ADD-VANTAGE 250 ML X 1 DOSE IV SCH (04:31)
[2019-12-30] MEDS: dexmedetomidine/D5W 100mL 100 ML IV SCH ×3 (05:53→22:25)
[2019-12-30] MEDS: budesonide 0.5mg/2ml UD nebule IH SCH ×2 (07:35→21:08)
[2019-12-30 08:07] LABS: PLATELET ESTIMATE NORMAL; TOTAL CELLS COUNTED 100; TOXIC GRANULATION 1+
[2019-12-30 08:10] LABS: ANISOCYTOSIS 1+; POLYCHROMASIA 1+
[2019-12-30] MEDS: thiamine inj. 100 MG, magnesium sulf injection 2 GM, MVI, adult No.4 with vit. K 10 ML ... IV SCH ×4 (08:48)
[2019-12-30] MEDS: pantoprazole 40 MG vial IV SCH (08:48)
[2019-12-30] MEDS: lactobacillus rhamnosus 10,000 MMU CELLS/CAPSULE PO SCH ×2 (08:49→20:45)
[2019-12-30] MEDS: levoTHYROXINE 88mcg tablet PO SCH (08:49)
[2019-12-30] MEDS: furosemide 40mg/4ml inj IV SCH ×2 (08:49→20:45)
[2019-12-30] MEDS: ferrous sulfate 325mg tablet PO SCH (08:49)
[2019-12-30] MEDS ORDERED: morphine/NS 5 mg/ml CADD 100 ML IV SCH (10:10)
[2019-12-30] MEDS: morphine/NS 5 mg/ml CADD 50 ML IV SCH (10:32)
[2019-12-30] MEDS ORDERED: CADD PCA waste documentation MC SCH (10:55)
--- NOTE | 2019-12-30 14:41 | NUR ---
[facility] LINE INFORMATION: REF: [id number] LOT: [id number] EXP: 08/06/2020
[2019-12-30] MEDS: folic acid 1mg/0.2ml inj IV SCH (15:02)
[2019-12-30] MEDS: enoxaparin 40mg/0.4ml syringe SQ SCH (15:28)
[2019-12-30] MEDS: [UNRECOGNIZED DRUG - REMARK] IV SCH ×4 (15:50)
[2019-12-30] MEDS: atorvastatin 20mg tablet PO SCH (20:45)
[2019-12-31] VITALS (17 sets, daily range): BP systolic 93–125; BP diastolic 57–81
[2019-12-31] MEDS: piperacillin/tazobactam inj. 3.375 GM in NS 50ml IV SCH ×3 (00:52→15:24)
[2019-12-31] MEDS: ipratropium/albuterol 3ml nebule IH SCH ×4 (02:48→21:26)
[2019-12-31 03:00] LABS: BASOPHILS # (AUTO) 0.1 X10'3 (0-0.2); BASOPHILS % (AUTO) 0.9 % (0-1); EOSINOPHILS # (AUTO) 1.1 X10'3 (0-0.9); EOSINOPHILS % (AUTO) 8.8 % (0-6); HEMATOCRIT 22.3 % (42.0-52.0); HEMOGLOBIN 7.6 g/dl (14.0-17.9); LYMPHOCYTES # (AUTO) 1.7 X10'3 (1.1-4.8); LYMPHOCYTES % (AUTO) 13.4 % (21-51); MEAN CORPUSCULAR HEMOGLOBIN 37.1 PG (27.0-31.0); MEAN CORPUSCULAR HGB CONC 34.2 g/dL (33.0-36.5); MEAN CORPUSCULAR VOLUME 108.5 FL (78-98); MEAN PLATELET VOLUME 8.2 FL (7.4-10.4); MONOCYTES % (AUTO) 7.5 % (2-12); NEUTROPHILS # (AUTO) 8.9 X10'3 (1.8-7.7); NEUTROPHILS % (AUTO) 69.4 % (42-75); PLATELET COUNT 351 X10'3 (140-440); RED BLOOD COUNT 2.05 X10'6 (4.70-6.10); RED CELL DISTRIBUTION WIDTH 17.1 % (11.5-14.5); WHITE BLOOD COUNT 12.8 X10'3 (4.5-11.0)
[2019-12-31 03:24] LABS: ALANINE AMINOTRANSFERASE 59 U/L (12-78); ALBUMIN 1.7 G/DL (3.4-5.0); ALBUMIN/GLOBULIN RATIO 0.5 (1.1-1.5); ALKALINE PHOSPHATASE 103 IU/L (46-116); ANION GAP 1 (8-16); ASPARTATE AMINO TRANSFERASE 43 U/L (10-37); BILIRUBIN,TOTAL 0.4 MG/DL (0.1-1.0); BLOOD UREA NITROGEN 12 MG/DL (7-18); BUN/CREATININE RATIO 19.7 (5.4-32.0); CALCIUM 8.1 MG/DL (8.5-10.1); CHLORIDE 105 MMOL/L (99-107); CREATININE 0.61 MG/DL (0.60-1.10); GLUCOSE 119 MG/DL (70-104); MAGNESIUM 1.6 MG/DL (1.5-2.4); SODIUM 141 MMOL/L (135-145); TOTAL CARBON DIOXIDE 34.9 MMOL/L (24-32); TOTAL PROTEIN 5.4 G/DL (6.4-8.2); eGFR > 90 ML/MIN
[2019-12-31 03:28] LABS: POTASSIUM 2.9 MMOL/L (3.5-5.1)
[2019-12-31] MEDS: potassium Cl 20mEq/100mL bag 100 ML IV PRN ×3 (04:59→15:24)
--- NOTE | 2019-12-31 06:00 | NUR ---
Patient in room ICU 2046. I have received report from Marleen GARCÍA and had the opportunity to ask questions and assume patient care. Patient vitals stable. Patient alert and oriented at time of transfer.
[2019-12-31] MEDS: morphine/NS 5 mg/ml CADD 50 ML IV SCH ×6 (06:32→23:00)
[2019-12-31] MEDS: dexmedetomidine/D5W 100mL 100 ML IV SCH (06:41)
[2019-12-31] MEDS: furosemide 40mg/4ml inj IV SCH ×2 (07:25→20:11)
[2019-12-31] MEDS: pantoprazole 40 MG vial IV SCH (07:26)
[2019-12-31] MEDS: lactobacillus rhamnosus 10,000 MMU CELLS/CAPSULE PO SCH ×2 (07:26→20:11)
[2019-12-31] MEDS: ferrous sulfate 325mg tablet PO SCH (07:26)
[2019-12-31] MEDS: levoTHYROXINE 88mcg tablet PO SCH (07:26)
[2019-12-31] MEDS: enoxaparin 40mg/0.4ml syringe SQ SCH (07:29)
[2019-12-31] MEDS: folic acid 1mg/0.2ml inj IV SCH (07:49)
[2019-12-31] MEDS: budesonide 0.5mg/2ml UD nebule IH SCH ×2 (08:48→21:26)
[2019-12-31] MEDS: thiamine inj. 100 MG, magnesium sulf injection 2 GM, MVI, adult No.4 with vit. K 10 ML ... IV SCH ×4 (09:36)
[2019-12-31] MEDS: [UNRECOGNIZED DRUG - REMARK] IV SCH ×4 (13:00)
--- NOTE | 2019-12-31 16:54 | NUR ---
Patient wear 4lpm nasal cannula at home 30/10. He will need to stay on 4lpm throughout his stay.
--- NOTE | 2019-12-31 17:00 | NUR ---
Problems reprioritized. Patient report given, questions answered & plan of care reviewed with Jenni GARCÍA. Addendum: 12/31/19 at 1925 by Jenni العلي RN Problems reprioritized. Patient report given, questions answered & plan of care reviewed with Morteza GARCÍA.
--- NOTE | 2019-12-31 18:05 | NUR ---
PAGER ID: [phone] MESSAGE: Eloise Meyers#[phone]- Pt done with 1 unit of blood. The second unit was not ordered. Could you please order the second unit. Blood bank will work on getting it ready. Thank you Jenni Courtney
[2019-12-31] MEDS: normal saline 1000ml 1,000 ML IV SCH (19:08)
[2019-12-31] MEDS ORDERED: morphine/NS 5 mg/ml CADD 100 ML IV SCH (20:10)
[2019-12-31] MEDS: atorvastatin 20mg tablet PO SCH (20:11)
[2020-01-01] VITALS: BP 122/71
[2020-01-01] MEDS: morphine/NS 5 mg/ml CADD 50 ML IV SCH ×12 (01:00→23:00)
[2020-01-01] MEDS: piperacillin/tazobactam inj. 3.375 GM in NS 50ml IV SCH ×3 (01:07→16:54)
[2020-01-01] MEDS: ipratropium/albuterol 3ml nebule IH SCH ×4 (03:29→20:48)
[2020-01-01 04:12] LABS: BASOPHILS # (AUTO) 0.1 X10'3 (0-0.2); BASOPHILS % (AUTO) 1.1 % (0-1); EOSINOPHILS % (AUTO) 8.6 % (0-6); HEMATOCRIT 22.9 % (42.0-52.0); HEMOGLOBIN 7.8 g/dl (14.0-17.9); LYMPHOCYTES # (AUTO) 1.3 X10'3 (1.1-4.8); LYMPHOCYTES % (AUTO) 10.6 % (21-51); MEAN CORPUSCULAR HEMOGLOBIN 37.3 PG (27.0-31.0); MEAN CORPUSCULAR VOLUME 109.7 FL (78-98); MEAN PLATELET VOLUME 8.5 FL (7.4-10.4); MONOCYTES # (AUTO) 0.9 X10'3 (0-0.9); MONOCYTES % (AUTO) 7.4 % (2-12); NEUTROPHILS # (AUTO) 8.6 X10'3 (1.8-7.7); NEUTROPHILS % (AUTO) 72.3 % (42-75); PLATELET COUNT 354 X10'3 (140-440); RED BLOOD COUNT 2.09 X10'6 (4.70-6.10); RED CELL DISTRIBUTION WIDTH 17.1 % (11.5-14.5); WHITE BLOOD COUNT 11.9 X10'3 (4.5-11.0)
[2020-01-01 04:24] LABS: ALANINE AMINOTRANSFERASE 75 U/L (12-78); ALBUMIN 1.8 G/DL (3.4-5.0); ALBUMIN/GLOBULIN RATIO 0.5 (1.1-1.5); ALKALINE PHOSPHATASE 138 IU/L (46-116); ANION GAP 0 (8-16); ASPARTATE AMINO TRANSFERASE 48 U/L (10-37); BILIRUBIN,TOTAL 0.5 MG/DL (0.1-1.0); BLOOD UREA NITROGEN 12 MG/DL (7-18); BUN/CREATININE RATIO 17.1 (5.4-32.0); CALCIUM 8.2 MG/DL (8.5-10.1); CHLORIDE 98 MMOL/L (99-107); GLUCOSE 89 MG/DL (70-104); MAGNESIUM 1.4 MG/DL (1.5-2.4); POTASSIUM 3.3 MMOL/L (3.5-5.1); PREALBUMIN 11.1 MG/DL (19-36); SODIUM 137 MMOL/L (135-145); TOTAL CARBON DIOXIDE 38.9 MMOL/L (24-32); TOTAL PROTEIN 5.8 G/DL (6.4-8.2); TRIGLYCERIDES 114 MG/DL (20-135); eGFR > 90 ML/MIN
[2020-01-01 07:00] VITALS: BP 128/80
[2020-01-01] MEDS: budesonide 0.5mg/2ml UD nebule IH SCH ×2 (08:00→20:47)
[2020-01-01] MEDS: ferrous sulfate 325mg tablet PO SCH (08:42)
[2020-01-01] MEDS: lactobacillus rhamnosus 10,000 MMU CELLS/CAPSULE PO SCH ×2 (08:42→21:51)
[2020-01-01] MEDS: pantoprazole 40mg Tablet.DR PO SCH (08:43)
[2020-01-01] MEDS: furosemide 40mg/4ml inj IV SCH ×2 (08:43→21:53)
[2020-01-01] MEDS: folic acid 1mg tablet PO SCH (08:43)
[2020-01-01] MEDS: enoxaparin 40mg/0.4ml syringe SQ SCH (08:43)
[2020-01-01] MEDS: levoTHYROXINE 88mcg tablet PO SCH (08:43)
[2020-01-01 11:00] VITALS: BP 120/86
[2020-01-01 12:00] VITALS: BP 120/86
[2020-01-01 12:10] VITALS: BP 122/84
--- NOTE | 2020-01-01 12:17 | NUR ---
Cris, at [facility]'s HIM dept, returned my call and stated that the pt's belongings, including pt's wallet, were located at their hospital and pt's son was notified and picked them up. Pt spoke with Barber alvarado, and confirmed. Addendum: 01/01/20 at 1350 by Tiffanie Edgar RN Cris called w/ jenny Blandon's number: [phone].
[2020-01-01] MEDS ORDERED: potassium CL 10mEq/100ml bag 100 ML IV PRN (12:20)
[2020-01-01] MEDS ORDERED: magnesium 4gm in 100ml NS 100 ML IV PRN (12:20)
[2020-01-01] MEDS ORDERED: potassium Cl 20 mEq SR tablet PO PRN (12:20)
[2020-01-01] MEDS: ondansetron/PF 4mg/2ml inj IV PRN ×2 (12:44→20:35)
[2020-01-01] MEDS: potassium Cl 20 mEq SR tablet PO PRN ×3 (12:44→21:51)
[2020-01-01] MEDS: mag hydrox/Alum hydrox/simeth 30ml oral suspension PO PRN ×2 (12:44→19:32)
[2020-01-01] MEDS: magnesium Cl slow-release 64mg tablet PO PRN ×2 (12:45→16:53)
--- NOTE | 2020-01-01 16:32 | NUR ---
Reassessment: Patient off TPN, on regular diet. Eating 50-74% of regular diet. Average of 272 ml ileostomy output. Pt is s/p laparotomy oversew anastomotic leak, drain, and closure of abdominal wound per surgeon note. 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 pt will need diet ed once stable prior to discharge. Rec: 1. Continue regular diet 2. thiamin, folic, MVI supplementation for etoh hx 3. Ileostomy diet ed prior to discharge 4. Wt per rx Addendum: 01/01/20 at [address] Amended: Links added.
--- NOTE | 2020-01-01 18:24 | NUR ---
GAVE REPORT TO DOT GARCÍA.
--- NOTE | 2020-01-01 18:53 | NUR ---
I have received report from RICKY Frost and had the opportunity to ask questions and assume patient care.
--- NOTE | 2020-01-01 18:56 | NUR ---
Patient in room PAULO 344. I have received report from Margot GARCÍA and had the opportunity to ask questions and assume patient care.
--- NOTE | 2020-01-01 19:15 | NUR ---
During CADD pump assessment noticed the IV pump was off so the patient was not receiving pain medication when he pushed the pain button. Number of doses given did not change, but the attempts did increase.
[2020-01-01] MEDS: atorvastatin 20mg tablet PO SCH (21:51)
[2020-01-02] VITALS (17 sets, daily range): BP systolic 108–133; BP diastolic 73–92
[2020-01-02] MEDS: piperacillin/tazobactam inj. 3.375 GM in NS 50ml IV SCH ×4 (00:24→23:17)
[2020-01-02] MEDS: morphine/NS 5 mg/ml CADD 50 ML IV SCH ×11 (01:00→23:00)
[2020-01-02] MEDS: ipratropium/albuterol 3ml nebule IH SCH ×4 (02:32→20:43)
[2020-01-02 05:11] LABS: ABG HCO3 46.7 mmol/L (22.0-26.0); ABG OXYGEN SATURATION 67.5 % (94-97); ABG PCO2 (T) 77.8 mmHg (35.0-48.0); ABG PO2 (T) 41.9 mmHg (75.0-100.0); FLOW 10 L/min; FMetHb 0.3 % (0.0-1.5); FO2Hb 66.6 % (94-97); TOTAL HEMOGLOBIN 10.4 G/dl (14.0-18.0)
[2020-01-02 05:38] LABS: BASOPHILS # (AUTO) 0.1 X10'3 (0-0.2); BASOPHILS % (AUTO) 0.3 % (0-1); EOSINOPHILS % (AUTO) 0.1 % (0-6); HEMATOCRIT 27.4 % (42.0-52.0); HEMOGLOBIN 9.3 g/dl (14.0-17.9); LYMPHOCYTES # (AUTO) 0.8 X10'3 (1.1-4.8); LYMPHOCYTES % (AUTO) 4.8 % (21-51); MEAN CORPUSCULAR HEMOGLOBIN 37.1 PG (27.0-31.0); MEAN CORPUSCULAR VOLUME 109.1 FL (78-98); MEAN PLATELET VOLUME 9.4 FL (7.4-10.4); MONOCYTES # (AUTO) 0.9 X10'3 (0-0.9); MONOCYTES % (AUTO) 5.5 % (2-12); NEUTROPHILS # (AUTO) 14.8 X10'3 (1.8-7.7); NEUTROPHILS % (AUTO) 89.3 % (42-75); PLATELET COUNT 463 X10'3 (140-440); RED BLOOD COUNT 2.51 X10'6 (4.70-6.10); RED CELL DISTRIBUTION WIDTH 16.7 % (11.5-14.5); WHITE BLOOD COUNT 16.6 X10'3 (4.5-11.0)
--- NOTE | 2020-01-02 05:45 | NUR ---
0420: call box wirer Intensivists was called letting him know that the patient had not put out anything from his ileostomy, and no bowel sounds were heard, KUB was ordered. 0445: Rapid response was called, Prior to calling rapid vs 133/92, 75%5l HR 138, Patient was SOB and gurgley. ICU charge nurse came up NG placed, 2500 out, ABG were done,. Repeat abg have been ordered. Patient is feeling better, will continue to monitor,
[2020-01-02 05:46] LABS: ANION GAP 3 (8-16); BILIRUBIN,TOTAL 0.5 MG/DL (0.1-1.0); BLOOD UREA NITROGEN 19 MG/DL (7-18); BUN/CREATININE RATIO 18.1 (5.4-32.0); CALCIUM 9.3 MG/DL (8.5-10.1); CHLORIDE 95 MMOL/L (99-107); CREATININE 1.05 MG/DL (0.60-1.10); GLUCOSE 143 MG/DL (70-104); MAGNESIUM 1.9 MG/DL (1.5-2.4); POTASSIUM 4.1 MMOL/L (3.5-5.1); SODIUM 141 MMOL/L (135-145); TOTAL PROTEIN 6.8 G/DL (6.4-8.2); eGFR 71 ML/MIN
[2020-01-02 05:47] LABS: ALANINE AMINOTRANSFERASE 62 U/L (12-78); ALBUMIN 2.1 G/DL (3.4-5.0); ALBUMIN/GLOBULIN RATIO 0.4 (1.1-1.5); ALKALINE PHOSPHATASE 156 IU/L (46-116); ASPARTATE AMINO TRANSFERASE 31 U/L (10-37)
[2020-01-02] MEDS: normal saline 500ml IV soln 500 ML IV SCH (05:49)
[2020-01-02 06:05] LABS: ABG BASE EXCESS 18.9 mmol/L (-2.0-2.0); ABG HCO3 47.3 mmol/L (22.0-26.0); ABG OXYGEN SATURATION 91.3 % (94-97); ABG PCO2 (T) 77.5 mmHg (35.0-48.0); ABG PO2 (T) 64.8 mmHg (75.0-100.0); FCOHb 0.5 % (0.0-3.9); FLOW 10 L/min; FMetHb 0.3 % (0.0-1.5); FO2Hb 90.6 % (94-97); PATIENT TEMPERATURE 36.6; TOTAL HEMOGLOBIN 11.2 G/dl (14.0-18.0)
[2020-01-02 06:08] LABS: TOTAL CARBON DIOXIDE 43.2 MMOL/L (24-32)
--- NOTE | 2020-01-02 06:42 | NUR ---
Patient in room PAULO 344. I have received report from RICKY Martines and had the opportunity to ask questions and assume patient care.
--- NOTE | 2020-01-02 06:50 | NUR ---
Problems reprioritized. Patient report given, questions answered & plan of care reviewed with RICKY Zimmerman.
--- NOTE | 2020-01-02 07:44 | NUR ---
Dr Olivas notified regarding rapid response called on NOC shift and updated with current pt condition of being on 15L non-rebreather. Per Dr Olivas, RN is to check abdominal wound for dehiscence and to notify him if present. Also Dr Olivas would like pt to be transferred back to ICU for higher level of care. stretcher leveler operator notified as well as nursing warehouse and receiving supervisor. Per nursing warehouse and receiving supervisor, no ICU nurses available at this time.
--- NOTE | 2020-01-02 07:45 | NUR ---
pt pulled NG tube from nose. When questioned as to why he removed the NG tube, pt stated 'I didn't want it there'. Education provided to pt regarding reason for NG tube being in place. Pt stated 'I know, I'll put it back in just a little bit'. Again, educated pt that he cannot replace the NG tube himself and he stated 'well, I've done it before'. Continued to educate pt that it must be replaced by nursing. Pt stated understanding and willingness to comply. Will continue to monitor.
[2020-01-02] MEDS: furosemide 40mg/4ml inj IV SCH ×2 (07:52→20:54)
[2020-01-02] MEDS: enoxaparin 40mg/0.4ml syringe SQ SCH (07:52)
[2020-01-02] MEDS: pantoprazole 40mg Tablet.DR PO SCH (08:00)
[2020-01-02] MEDS: ferrous sulfate 325mg tablet PO SCH (08:00)
[2020-01-02] MEDS: lactobacillus rhamnosus 10,000 MMU CELLS/CAPSULE PO SCH ×2 (08:00→20:53)
[2020-01-02] MEDS: folic acid 1mg tablet PO SCH (08:00)
[2020-01-02] MEDS: levoTHYROXINE 88mcg tablet PO SCH (08:00)
[2020-01-02] MEDS ORDERED: midazolam 2 mg/2 ml injection ONE (08:38)
[2020-01-02] MEDS: budesonide 0.5mg/2ml UD nebule IH SCH ×2 (08:53→20:43)
--- NOTE | 2020-01-02 09:00 | NUR ---
Problems reprioritized. Patient report given, questions answered & plan of care reviewed with RICKY Bo.
--- NOTE | 2020-01-02 09:08 | NUR ---
received patient report from RICKY Zimmerman.
--- NOTE | 2020-01-02 09:45 | NUR ---
pt arrived to unit via hospital bed, all vital signs stable. while performing to RN skin check, patient's bottom of ilostomy bag was cut off and stool was on patient. WOC called to replace bag with proper fitting bag.
--- NOTE | 2020-01-02 09:51 | NUR ---
Pt transferred to ICU, room 2016, with all belongings.
--- NOTE | 2020-01-02 11:34 | NUR ---
all AM PO meds were not given by previous RN, Elsie. Pt is currently NPO
--- NOTE | 2020-01-02 11:45 | NUR ---
Dr. Olivas at bedside; orders received to place wound vac at 125mmhg; woc RN notified.
--- NOTE | 2020-01-02 13:37 | NUR ---
WOUND VAC EDUCATION PROVIDED BY WOUND CARE 1. Patient instructed to call the Wound Center or their Home Health Agency immediately if: * They notice a change in the color or amount of the fluid in the canister. * Their wound looks more red than usual or has a foul smell. * The skin around their wound looks reddened or irritated. * The dressing feels loose or appears to be loose. * They experience any increase or changes in their pain. * The alarm will not turn off. 2. Patient instructed that they should not be disconnected from suction for more than 2 hours at a time. * If they are not able to get the suction back on, they need to remove the dressing and take all of the foam out of the wound. * Then moisten sterile gauze with normal saline and place on/in the wound. * Change the dressing once a day until arrangements have been made to replace the wound vac dressing. 3. Patient instructed to turn the wound vac machine OFF and call 911 or go to the ED immediately if their canister fills rapidly with blood. 4. If any of these occur while in the hospital tell a nurse immediately. Addendum: 01/02/20 at 1339 by Elsi Cash RN Amended: Links added.
--- NOTE | 2020-01-02 13:44 | NUR ---
F/U 01/01: pt transferred back to critical care after vomiting and short of breath, no bowel sounds per bedside RN and now NPO. Pt was on regular diet and was eating 50-74%. Had Average of 272 ml ileostomy output. Pt is s/p laparotomy oversew anastomotic leak, drain, and closure of abdominal wound per surgeon note. 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 pt will need diet ed once stable prior to discharge. Rec: 1. advance diet as medically indicated to low fiber 2. thiamin, folic, MVI supplementation for etoh hx 3. Ileostomy diet ed prior to discharge 4. Wt per rx Addendum: 01/02/20 at [address] Amended: Links added.
--- NOTE | 2020-01-02 15:46 | NUR ---
patient Urine output has been minimal since arriving to the unit. Patient's bladder scanned and residuals of 81cc.
--- NOTE | 2020-01-02 18:20 | NUR ---
Patient in room CICU 2016. I have received report from Josephine GARCÍA and had the opportunity to ask questions and assume patient care.
--- NOTE | 2020-01-02 18:36 | NUR ---
Patient report given, questions answered & plan of care reviewed with Josephine GARCÍA.
[2020-01-02] MEDS: atorvastatin 20mg tablet PO SCH (20:53)
[2020-01-02] MEDS: diatr meglu/diatrizoate 30ml oral sol.-(3 dose) bottle PO SCH (20:55)
[2020-01-03] VITALS (24 sets, daily range): BP systolic 80–142; BP diastolic 52–93
[2020-01-03] MEDS: morphine/NS 5 mg/ml CADD 50 ML IV SCH ×7 (01:00→13:00)
[2020-01-03] MEDS: ipratropium/albuterol 3ml nebule IH SCH ×4 (02:23→20:00)
[2020-01-03 03:41] LABS: ALBUMIN 2.3 G/DL (3.4-5.0); BLOOD UREA NITROGEN 26 MG/DL (7-18); BUN/CREATININE RATIO 16.6 (5.4-32.0); CALCIUM 9.6 MG/DL (8.5-10.1); CHLORIDE 92 MMOL/L (99-107); CREATININE 1.57 MG/DL (0.60-1.10); GLUCOSE 128 MG/DL (70-104); MAGNESIUM 2.1 MG/DL (1.5-2.4); POTASSIUM 3.7 MMOL/L (3.5-5.1); SODIUM 143 MMOL/L (135-145); eGFR 45 ML/MIN
[2020-01-03 03:53] LABS: BASOPHILS # (AUTO) 0.1 X10'3 (0-0.2); BASOPHILS % (AUTO) 0.4 % (0-1); EOSINOPHILS # (AUTO) 0.1 X10'3 (0-0.9); EOSINOPHILS % (AUTO) 0.3 % (0-6); HEMATOCRIT 27.7 % (42.0-52.0); HEMOGLOBIN 9.4 g/dl (14.0-17.9); LYMPHOCYTES # (AUTO) 1.3 X10'3 (1.1-4.8); LYMPHOCYTES % (AUTO) 7.5 % (21-51); MEAN CORPUSCULAR HEMOGLOBIN 37.5 PG (27.0-31.0); MEAN CORPUSCULAR VOLUME 110.1 FL (78-98); MEAN PLATELET VOLUME 9.6 FL (7.4-10.4); MONOCYTES # (AUTO) 1.1 X10'3 (0-0.9); MONOCYTES % (AUTO) 6.6 % (2-12); NEUTROPHILS # (AUTO) 14.6 X10'3 (1.8-7.7); NEUTROPHILS % (AUTO) 85.2 % (42-75); PLATELET COUNT 468 X10'3 (140-440); RED BLOOD COUNT 2.51 X10'6 (4.70-6.10); RED CELL DISTRIBUTION WIDTH 17.1 % (11.5-14.5); WHITE BLOOD COUNT 17.1 X10'3 (4.5-11.0)
[2020-01-03 04:00] LABS: ANION GAP 1 (8-16)
[2020-01-03 04:02] LABS: TOTAL CARBON DIOXIDE > 50 MMOL/L (24-32)
--- NOTE | 2020-01-03 06:25 | NUR ---
Patient in room CICU 2016. I have received report from RICKY Burton and had the opportunity to ask questions and assume patient care.
--- NOTE | 2020-01-03 06:28 | NUR ---
Problems reprioritized. Patient report given, questions answered & plan of care reviewed with Malika GARCÍA.
[2020-01-03] MEDS: folic acid 1mg tablet PO SCH (07:21)
[2020-01-03] MEDS: lactobacillus rhamnosus 10,000 MMU CELLS/CAPSULE PO SCH ×2 (07:21→20:11)
[2020-01-03] MEDS: levoTHYROXINE 88mcg tablet PO SCH (07:21)
[2020-01-03] MEDS: ferrous sulfate 325mg tablet PO SCH (07:21)
[2020-01-03] MEDS: diatr meglu/diatrizoate 30ml oral sol.-(3 dose) bottle PO SCH ×2 (07:23→10:02)
[2020-01-03] MEDS: pantoprazole 40mg Tablet.DR PO SCH (07:25)
[2020-01-03] MEDS: furosemide 40mg/4ml inj IV SCH ×2 (07:25→20:00)
[2020-01-03] MEDS: enoxaparin 40mg/0.4ml syringe SQ SCH (07:33)
[2020-01-03] MEDS: budesonide 0.5mg/2ml UD nebule IH SCH ×2 (07:35→20:08)
[2020-01-03] MEDS: piperacillin/tazobactam inj. 3.375 GM in NS 50ml IV SCH ×3 (07:42→23:32)
[2020-01-03 08:28] LABS: PLATELET ESTIMATE INCREASED
[2020-01-03 08:29] LABS: ANISOCYTOSIS 1+; POLYCHROMASIA 1+
[2020-01-03 08:30] LABS: TARGET CELLS 2+
[2020-01-03] MEDS ORDERED: fat emulsion 20% IV 181.82 ML, MVI, adult No.4 with vit. K 4.55 ML, Trace element-5 inj... IV SCH ×4 (11:07)
[2020-01-03] MEDS ORDERED: Dextrose 10%-water IV solution 1,000 ML IV PRN (11:07)
[2020-01-03] MEDS ORDERED: magnesium 4gm in 100ml NS 100 ML IV PRN (11:10)
[2020-01-03] MEDS ORDERED: magnesium Cl slow-release 64mg tablet PO PRN (11:10)
[2020-01-03] MEDS ORDERED: magnesium 2GM in 50ml NS 50 ML IV PRN (11:10)
--- NOTE | 2020-01-03 11:40 | NUR ---
NG order to be placed in patient. Patient sat in an upright position with assistance of RICKY Sims. As NG tube was placed into patients nares, he began to vomit 2L of dark brown emesis into towel. Patient on high flow nasal cannula at the time. 1800ml of emesis suctioned out from NG tube into canister.
--- NOTE | 2020-01-03 12:04 | NUR ---
TPN consult. Per Stator Winder progress note CT suggests ileus or partial bowel obstruction. Pt has NG tube to suction. Will receive TPN for nutrition. Rec: 1. Continuous 3:1 TPN using Clininmix E 08/26 with 50 ml additional 20% intralipids at 90 ml/hr will provide total volume 2160 ml, 1537 non protein, 1958 total cals, 105 g protein, 421 dextrose, 2.416 mg/kg/min CHO loading. Will meet protein and calorie needs. D/w clinical pharmacist. 2. Prealbumin/TG q sunday and 3. Daily weights 4. advance diet as medically indicated to low fiber when OK with MD 5. thiamin, folic, MVI supplementation for etoh hx 6. Ileostomy diet ed prior to discharge Addendum: 01/03/20 at [address] Amended: Links added.
[2020-01-03 13:20] LABS: ALANINE AMINOTRANSFERASE 39 U/L (12-78); ALBUMIN 2.2 G/DL (3.4-5.0); ALBUMIN/GLOBULIN RATIO 0.5 (1.1-1.5); ALKALINE PHOSPHATASE 123 IU/L (46-116); ASPARTATE AMINO TRANSFERASE 21 U/L (10-37); BILIRUBIN,TOTAL 0.5 MG/DL (0.1-1.0); BLOOD UREA NITROGEN 29 MG/DL (7-18); BUN/CREATININE RATIO 16.1 (5.4-32.0); CALCIUM 9.5 MG/DL (8.5-10.1); CHLORIDE 91 MMOL/L (99-107); GLUCOSE 131 MG/DL (70-104); MAGNESIUM 2.2 MG/DL (1.5-2.4); PHOSPHORUS 5.8 MG/DL (2.3-4.5); POTASSIUM 3.1 MMOL/L (3.5-5.1); PREALBUMIN 13.3 MG/DL (19-36); SODIUM 145 MMOL/L (135-145); TOTAL PROTEIN 6.7 G/DL (6.4-8.2); TRIGLYCERIDES 126 MG/DL (20-135); eGFR 38 ML/MIN
[2020-01-03 13:33] LABS: ANION GAP 4 (8-16)
[2020-01-03 14:06] LABS: TOTAL CARBON DIOXIDE > 50 MMOL/L (24-32)
[2020-01-03 14:31] LABS: ABG BASE EXCESS 33.7 mmol/L (-2.0-2.0); ABG HCO3 61.2 mmol/L (22.0-26.0); ABG OXYGEN SATURATION 91.2 % (94-97); ABG PCO2 (T) 77.9 mmHg (35.0-48.0); ABG PO2 (T) 64.1 mmHg (75.0-100.0); ALLEN'S TEST POSITIVE; FCOHb 0.9 % (0.0-3.9); FLOW 50 L/min; FMetHb 0.3 % (0.0-1.5); FO2Hb 90.1 % (94-97); TOTAL HEMOGLOBIN 9.4 G/dl (14.0-18.0)
[2020-01-03] MEDS ORDERED: midazolam 2 mg/2 ml injection ONE (14:34)
[2020-01-03] MEDS ORDERED: FENTANYL-0.9 % NACL/PF 100 ML IV PRN (14:37)
[2020-01-03] MEDS ORDERED: midazolam 100mg in NS 100ml 100 ML IV PRN (14:37)
[2020-01-03] MEDS ORDERED: fentaNYL/PF 50MCG/1 ML 2ML syringe IV PRN (14:40)
[2020-01-03] MEDS ORDERED: midazolam 2 mg/2 ml injection IV ONE (14:40)
[2020-01-03] MEDS ORDERED: albuterol 2.5 MG/3 ML nebule NEB PRN (14:40)
[2020-01-03] MEDS ORDERED: ipratropium/albuterol 3ml nebule NEB PRN (14:40)
[2020-01-03] MEDS: ipratropium/albuterol 3ml nebule NEB SCH ×3 (15:00→23:17)
[2020-01-03] MEDS: albuterol 2.5 MG/3 ML nebule NEB SCH ×3 (15:00→23:00)
--- NOTE | 2020-01-03 15:00 | NUR ---
Around 1420, after ABG was drawn by RT; patient removed NG tube by himself and removed the high flow nasal cannula at 50%. Patient arousable though was now confused; when asked where he was he responded "My house..I'm just trying to sleep." Patient required 100% hi-flow O2 to bring patient's oxygen level to 95%. Dr. Stephens immediately notified; and recommended to prepare patient for intubation. Rocuronium and Versed administered by Charge nurse. Intubation occurred at 1442.
[2020-01-03] MEDS ORDERED: [UNRECOGNIZED DRUG - REMARK] IV SCH ×4 (16:00)
[2020-01-03] MEDS: potassium Cl 20mEq/100mL bag 100 ML IV PRN ×2 (17:50→18:38)
[2020-01-03 18:16] LABS: ABG BASE EXCESS 29.2 mmol/L (-2.0-2.0); ABG HCO3 54.1 mmol/L (22.0-26.0); ABG OXYGEN SATURATION 95.9 % (94-97); ABG PCO2 (T) 56.9 mmHg (35.0-48.0); ABG PO2 (T) 81.3 mmHg (75.0-100.0); FCOHb 0.5 % (0.0-3.9); FMetHb 0.3 % (0.0-1.5); FO2Hb 95.1 % (94-97); PEEP 8 cm H2O; RESPIRATORY RATE 24 b/min; TIDAL VOLUME 400 mL; TOTAL HEMOGLOBIN 8.7 G/dl (14.0-18.0)
--- NOTE | 2020-01-03 18:30 | NUR ---
Patient in room CICU 2006. I have received report from Suzy GARCÍA and had the opportunity to ask questions and assume patient care.
[2020-01-03] MEDS: atorvastatin 20mg tablet PO SCH (20:11)
[2020-01-04] VITALS (24 sets, daily range): BP systolic 81–124; BP diastolic 49–75
[2020-01-04] MEDS: ipratropium/albuterol 3ml nebule IH SCH (02:00)
[2020-01-04] MEDS: ipratropium/albuterol 3ml nebule NEB SCH ×6 (02:33→22:31)
[2020-01-04] MEDS: albuterol 2.5 MG/3 ML nebule NEB SCH (02:33)
[2020-01-04] MEDS: normal saline 500ml IV soln 500 ML IV SCH (03:12)
[2020-01-04 03:46] LABS: BASOPHILS # (AUTO) 0.1 X10'3 (0-0.2); BASOPHILS % (AUTO) 0.7 % (0-1); EOSINOPHILS # (AUTO) 0.4 X10'3 (0-0.9); EOSINOPHILS % (AUTO) 2.6 % (0-6); HEMATOCRIT 23.2 % (42.0-52.0); HEMOGLOBIN 7.6 g/dl (14.0-17.9); LYMPHOCYTES # (AUTO) 1.7 X10'3 (1.1-4.8); LYMPHOCYTES % (AUTO) 12.3 % (21-51); MEAN CORPUSCULAR HEMOGLOBIN 35.2 PG (27.0-31.0); MEAN CORPUSCULAR VOLUME 106.8 FL (78-98); MEAN PLATELET VOLUME 9.4 FL (7.4-10.4); MONOCYTES # (AUTO) 0.9 X10'3 (0-0.9); MONOCYTES % (AUTO) 6.6 % (2-12); NEUTROPHILS # (AUTO) 10.9 X10'3 (1.8-7.7); NEUTROPHILS % (AUTO) 77.8 % (42-75); PLATELET COUNT 432 X10'3 (140-440); RED BLOOD COUNT 2.17 X10'6 (4.70-6.10); RED CELL DISTRIBUTION WIDTH 16.7 % (11.5-14.5)
[2020-01-04 04:09] LABS: ALANINE AMINOTRANSFERASE 29 U/L (12-78); ALBUMIN/GLOBULIN RATIO 0.5 (1.1-1.5); ALKALINE PHOSPHATASE 100 IU/L (46-116); ASPARTATE AMINO TRANSFERASE 22 U/L (10-37); BILIRUBIN,TOTAL 0.5 MG/DL (0.1-1.0); BLOOD UREA NITROGEN 32 MG/DL (7-18); BUN/CREATININE RATIO 19.2 (5.4-32.0); CALCIUM 8.8 MG/DL (8.5-10.1); CHLORIDE 95 MMOL/L (99-107); CREATININE 1.67 MG/DL (0.60-1.10); GLUCOSE 131 MG/DL (70-104); MAGNESIUM 2.1 MG/DL (1.5-2.4); PHOSPHORUS 3.7 MG/DL (2.3-4.5); SODIUM 146 MMOL/L (135-145); eGFR 42 ML/MIN
[2020-01-04 04:21] LABS: ABG BASE EXCESS 29.3 mmol/L (-2.0-2.0); ABG HCO3 53.6 mmol/L (22.0-26.0); ABG OXYGEN SATURATION 93.8 % (94-97); ABG PCO2 (T) 51.9 mmHg (35.0-48.0); ABG PO2 (T) 62.1 mmHg (75.0-100.0); ALLEN'S TEST POSITIVE; FCOHb 0.8 % (0.0-3.9); FMetHb 0.3 % (0.0-1.5); FO2Hb 92.8 % (94-97); PATIENT TEMPERATURE 36.2; PEEP 8 cm H2O; RESPIRATORY RATE 24 b/min; TIDAL VOLUME 400 mL; TOTAL HEMOGLOBIN 7.8 G/dl (14.0-18.0)
[2020-01-04 04:26] LABS: ANION GAP 1 (8-16)
[2020-01-04 04:27] LABS: POTASSIUM 2.8 MMOL/L (3.5-5.1)
[2020-01-04 04:28] LABS: TOTAL CARBON DIOXIDE > 50 MMOL/L (24-32)
[2020-01-04] MEDS: potassium Cl 20mEq/100mL bag 100 ML IV PRN ×4 (04:30→07:52)
--- NOTE | 2020-01-04 06:28 | NUR ---
Problems reprioritized. Patient report given, questions answered & plan of care reviewed with oncoming shift.
[2020-01-04] MEDS: lactobacillus rhamnosus 10,000 MMU CELLS/CAPSULE PO SCH ×2 (07:20→20:13)
[2020-01-04] MEDS: piperacillin/tazobactam inj. 3.375 GM in NS 50ml IV SCH ×2 (07:20→16:29)
[2020-01-04] MEDS: furosemide 40mg/4ml inj IV SCH ×2 (07:20→15:30)
[2020-01-04] MEDS: ferrous sulfate 325mg tablet PO SCH (07:20)
[2020-01-04] MEDS: pantoprazole 40mg Tablet.DR PO SCH (07:21)
[2020-01-04] MEDS: levoTHYROXINE 88mcg tablet PO SCH (07:21)
[2020-01-04] MEDS: enoxaparin 40mg/0.4ml syringe SQ SCH (07:21)
[2020-01-04] MEDS: folic acid 1mg tablet PO SCH (07:21)
[2020-01-04] MEDS: budesonide 0.5mg/2ml UD nebule IH SCH ×2 (07:33→19:03)
[2020-01-04] MEDS: dexmedetomidin/NS 400mcg/100ml 100 ML IV SCH ×4 (09:40→20:13)
[2020-01-04] MEDS ORDERED: NORepinephrine 8mg/ 250ml NS 250 ML IV ONE (13:53)
[2020-01-04] MEDS: NORepinephrine 8mg/ 250ml NS 250 ML IV SCH (13:57)
[2020-01-04] MEDS ORDERED: dextrose ORAL solution 15 GM/59 ML bottle PO PRN ×2 (14:30)
[2020-01-04] MEDS ORDERED: dextrose 50%-water 50ml dispensing syringe IV PRN ×2 (14:30)
[2020-01-04] MEDS ORDERED: MESSAGE TO PHARMACY PO ONE (14:30)
[2020-01-04] MEDS ORDERED: glucagon, human recombinant 1mg kit SUBCUT PRN (14:30)
[2020-01-04 15:21] LABS: HEMOGLOBIN A1C 5.3 % (4.5-6.2)
[2020-01-04] MEDS: insulin regular, human U-100 3ml vial - multi-dose SQ SCH ×2 (15:26→20:22)
[2020-01-04] MEDS ORDERED: albumin (Human) 5% 250ml 250 ML IV ONE ×2 (15:30→15:35)
--- NOTE | 2020-01-04 16:25 | NUR ---
HOLD NEVA ALVARENGA PER DR CHONG,AND REASSES DAGOBERTO
--- NOTE | 2020-01-04 18:30 | NUR ---
Patient in room CICU 2006. I have received report from dAY SHIFT RN and had the opportunity to ask questions and assume patient care.
[2020-01-04] MEDS: [UNRECOGNIZED DRUG - REMARK] IV SCH ×4 (18:39)
[2020-01-04] MEDS ORDERED: mineral oil/petrolatum ophthal oint EACHEYE SCH (20:00)
[2020-01-04] MEDS: mineral oil/petrolatum ophthal oint EACHEYE SCH (20:00)
[2020-01-04] MEDS: atorvastatin 20mg tablet PO SCH (20:13)
[2020-01-04] MEDS: insulin glargine (Lantus) pen - multi-dose SQ SCH (20:23)
[2020-01-05] VITALS (21 sets, daily range): BP systolic 90–135; BP diastolic 51–72
[2020-01-05] MEDS: piperacillin/tazobactam inj. 3.375 GM in NS 50ml IV SCH ×4 (00:40→23:51)
[2020-01-05] MEDS: dexmedetomidin/NS 400mcg/100ml 100 ML IV SCH ×5 (00:41→23:48)
[2020-01-05] MEDS: NORepinephrine 8mg/ 250ml NS 250 ML IV SCH ×2 (00:59→12:08)
[2020-01-05] MEDS: mineral oil/petrolatum ophthal oint EACHEYE SCH ×4 (02:00→19:39)
[2020-01-05] MEDS: insulin regular, human U-100 3ml vial - multi-dose SQ SCH ×4 (02:22→20:31)
[2020-01-05 02:45] LABS: BASOPHILS # (AUTO) 0.1 X10'3 (0-0.2); BASOPHILS % (AUTO) 0.6 % (0-1); EOSINOPHILS # (AUTO) 0.7 X10'3 (0-0.9); EOSINOPHILS % (AUTO) 6.1 % (0-6); HEMOGLOBIN 7.2 g/dl (14.0-17.9); LYMPHOCYTES # (AUTO) 1.5 X10'3 (1.1-4.8); LYMPHOCYTES % (AUTO) 13.1 % (21-51); MEAN CORPUSCULAR HEMOGLOBIN 35.8 PG (27.0-31.0); MEAN CORPUSCULAR HGB CONC 33.2 g/dL (33.0-36.5); MEAN CORPUSCULAR VOLUME 107.7 FL (78-98); MEAN PLATELET VOLUME 9.7 FL (7.4-10.4); MONOCYTES # (AUTO) 0.6 X10'3 (0-0.9); MONOCYTES % (AUTO) 5.5 % (2-12); NEUTROPHILS # (AUTO) 8.3 X10'3 (1.8-7.7); NEUTROPHILS % (AUTO) 74.7 % (42-75); PLATELET COUNT 362 X10'3 (140-440); RED BLOOD COUNT 2.02 X10'6 (4.70-6.10); RED CELL DISTRIBUTION WIDTH 16.9 % (11.5-14.5); WHITE BLOOD COUNT 11.1 X10'3 (4.5-11.0)
[2020-01-05 02:47] LABS: HEMATOCRIT 21.7 % (42.0-52.0)
[2020-01-05] MEDS: ipratropium/albuterol 3ml nebule NEB SCH ×6 (02:49→22:55)
--- NOTE | 2020-01-05 03:00 | NUR ---
CRITICAL HGB 7.2, HCT 21.7, K 2.6. CO2 45.6. CALLED RESULTS TO ARTHUR CAMPUZANO NP. NEW ORDERS FOR TYPE AND SCREEN. WILL CONTINUE TO MONITOR CLOSELY.
[2020-01-05 03:07] LABS: ALANINE AMINOTRANSFERASE 23 U/L (12-78); ALBUMIN 2.1 G/DL (3.4-5.0); ALBUMIN/GLOBULIN RATIO 0.6 (1.1-1.5); ALKALINE PHOSPHATASE 78 IU/L (46-116); ASPARTATE AMINO TRANSFERASE 16 U/L (10-37); BILIRUBIN,TOTAL 0.4 MG/DL (0.1-1.0); BLOOD UREA NITROGEN 31 MG/DL (7-18); BUN/CREATININE RATIO 28.2 (5.4-32.0); CALCIUM 8.9 MG/DL (8.5-10.1); CHLORIDE 101 MMOL/L (99-107); GLUCOSE 153 MG/DL (70-104); MAGNESIUM 2.1 MG/DL (1.5-2.4); PHOSPHORUS 3.4 MG/DL (2.3-4.5); PREALBUMIN 12.4 MG/DL (19-36); SODIUM 145 MMOL/L (135-145); TOTAL PROTEIN 5.7 G/DL (6.4-8.2); TRIGLYCERIDES 76 MG/DL (20-135); eGFR 67 ML/MIN
[2020-01-05 03:08] LABS: ANION GAP -2 (8-16)
[2020-01-05 03:11] LABS: ABG BASE EXCESS 21.5 mmol/L (-2.0-2.0); ABG HCO3 46.3 mmol/L (22.0-26.0); ABG OXYGEN SATURATION 94.2 % (94-97); ABG PCO2 (T) 54.7 mmHg (35.0-48.0); ABG PO2 (T) 68.9 mmHg (75.0-100.0); ALLEN'S TEST POSITIVE; FCOHb 0.9 % (0.0-3.9); FMetHb 0.3 % (0.0-1.5); FO2Hb 93.1 % (94-97); PATIENT TEMPERATURE 36.2; RESPIRATORY RATE 20 b/min; TIDAL VOLUME 400 mL; TOTAL HEMOGLOBIN 7.1 G/dl (14.0-18.0)
[2020-01-05 03:20] LABS: POTASSIUM 2.6 MMOL/L (3.5-5.1); TOTAL CARBON DIOXIDE 45.6 MMOL/L (24-32)
[2020-01-05] MEDS: potassium Cl 20mEq/100mL bag 100 ML IV PRN ×4 (03:47→08:13)
--- NOTE | 2020-01-05 06:26 | NUR ---
Problems reprioritized. Patient report given, questions answered & plan of care reviewed with AZ GARCÍA.
--- NOTE | 2020-01-05 06:55 | NUR ---
Patient in room CICU 2006. I have received report from RICKY Perez and had the opportunity to ask questions and assume patient care.
[2020-01-05] MEDS: budesonide 0.5mg/2ml UD nebule IH SCH ×2 (07:09→18:47)
[2020-01-05] MEDS: furosemide 40mg/4ml inj IV SCH ×2 (08:00→19:38)
[2020-01-05] MEDS: pantoprazole 40mg Tablet.DR PO SCH (08:02)
[2020-01-05] MEDS: folic acid 1mg tablet PO SCH (08:02)
[2020-01-05] MEDS: lactobacillus rhamnosus 10,000 MMU CELLS/CAPSULE PO SCH ×2 (08:02→19:38)
[2020-01-05] MEDS: levoTHYROXINE 88mcg tablet PO SCH (08:02)
[2020-01-05] MEDS: enoxaparin 40mg/0.4ml syringe SQ SCH (08:02)
[2020-01-05] MEDS: ferrous sulfate 325mg tablet PO SCH (08:02)
[2020-01-05] MEDS ORDERED: methylnaltrexone br 12mg/0.6ml inj***SubQ only SQ ONE (12:40)
[2020-01-05] MEDS: NORepinephrine 8 MG in NS 250ml IV soln IV SCH (13:10)
--- NOTE | 2020-01-05 13:30 | NUR ---
F/u 01/05: Pt tolerating TPN at goal OG now in place to suction w/ -3580ml output since 01/01 per EMR. Little to no Ileostomy output to start on relistor today per roller leveler. Will monitor for EN initiation as medically indicated once bowel function returns. Rec: 1. Continuous 3:1 TPN using Clinimix E 08/26 with 50 ml additional 20% intralipids at 90 ml/hr will provide total volume 2160 ml, 1537 non protein, 1958 total cals, 105 g protein, 421 dextrose, 2.416 mg/kg/min CHO loading. Will meet protein and calorie needs. D/w clinical pharmacist. 2. Prealbumin/TG q sunday and 3. Daily weights 4. upon extubation; advance diet as medically indicated to low fiber 5. thiamin, folic, MVI supplementation for etoh hx 6. Ileostomy diet ed prior to discharge as appropriate Addendum: 01/05/20 at [address] Amended: Links added. Addendum: 01/05/20 at [address] Joseph/edmond 01/04*
[2020-01-05] MEDS: [UNRECOGNIZED DRUG - REMARK] IV SCH ×4 (14:11)
[2020-01-05] MEDS: POTASSIUM BICARB 20meq eff tab 20 MEQ TABLET.EFF PO PRN ×2 (15:18→19:39)
[2020-01-05 17:52] LABS: ALLEN'S TEST positive
--- NOTE | 2020-01-05 18:15 | NUR ---
Patient in room CICU 2006. I have received report from Katie GARCÍA and had the opportunity to ask questions and assume patient care. Patient is on the ventilator but is awake and alert. He has precedex and levophed infusing. BP is low but MAP is >60. Will continue to monitor.
[2020-01-05] MEDS: atorvastatin 20mg tablet PO SCH (20:28)
[2020-01-05] MEDS: insulin glargine (Lantus) pen - multi-dose SQ SCH (20:31)
[2020-01-06] VITALS (21 sets, daily range): BP systolic 87–118; BP diastolic 44–68
[2020-01-06] MEDS: NORepinephrine 8 MG in NS 250ml IV soln IV SCH ×3 (01:24→18:15)
[2020-01-06] MEDS: POTASSIUM BICARB 20meq eff tab 20 MEQ TABLET.EFF PO PRN ×3 (01:27→13:06)
[2020-01-06] MEDS: normal saline 500ml IV soln 500 ML IV SCH (03:12)
[2020-01-06] MEDS: mineral oil/petrolatum ophthal oint EACHEYE SCH ×4 (03:20→19:24)
[2020-01-06] MEDS: insulin regular, human U-100 3ml vial - multi-dose SQ SCH ×2 (03:20→13:54)
[2020-01-06] MEDS: ipratropium/albuterol 3ml nebule NEB SCH ×6 (03:25→23:42)
[2020-01-06 03:46] LABS: ABG HCO3 43.5 mmol/L (22.0-26.0); ABG OXYGEN SATURATION 93.6 % (94-97); ABG PCO2 (T) 50.4 mmHg (35.0-48.0); ABG PO2 (T) 65.8 mmHg (75.0-100.0); ALLEN'S TEST POSITIVE; FCOHb 0.6 % (0.0-3.9); FMetHb 0.3 % (0.0-1.5); FO2Hb 92.8 % (94-97); PATIENT TEMPERATURE 36.5; PEEP 8 cm H2O; TOTAL HEMOGLOBIN 9.2 G/dl (14.0-18.0)
[2020-01-06 03:57] LABS: BASOPHILS # (AUTO) 0.1 X10'3 (0-0.2); BASOPHILS % (AUTO) 0.7 % (0-1); EOSINOPHILS % (AUTO) 8.2 % (0-6); HEMATOCRIT 22.4 % (42.0-52.0); HEMOGLOBIN 7.5 g/dl (14.0-17.9); LYMPHOCYTES # (AUTO) 1.8 X10'3 (1.1-4.8); LYMPHOCYTES % (AUTO) 14.7 % (21-51); MEAN CORPUSCULAR HEMOGLOBIN 37.1 PG (27.0-31.0); MEAN CORPUSCULAR HGB CONC 33.3 g/dL (33.0-36.5); MEAN CORPUSCULAR VOLUME 111.3 FL (78-98); MONOCYTES # (AUTO) 0.7 X10'3 (0-0.9); MONOCYTES % (AUTO) 5.7 % (2-12); NEUTROPHILS # (AUTO) 8.8 X10'3 (1.8-7.7); NEUTROPHILS % (AUTO) 70.7 % (42-75); PLATELET COUNT 347 X10'3 (140-440); RED BLOOD COUNT 2.01 X10'6 (4.70-6.10); RED CELL DISTRIBUTION WIDTH 17.1 % (11.5-14.5); WHITE BLOOD COUNT 12.4 X10'3 (4.5-11.0)
[2020-01-06 04:07] LABS: ALANINE AMINOTRANSFERASE 53 U/L (12-78); ALBUMIN 1.9 G/DL (3.4-5.0); ALBUMIN/GLOBULIN RATIO 0.5 (1.1-1.5); ALKALINE PHOSPHATASE 97 IU/L (46-116); ANION GAP 1 (8-16); ASPARTATE AMINO TRANSFERASE 47 U/L (10-37); BILIRUBIN,TOTAL 0.4 MG/DL (0.1-1.0); BLOOD UREA NITROGEN 27 MG/DL (7-18); BUN/CREATININE RATIO 26.7 (5.4-32.0); CALCIUM 8.7 MG/DL (8.5-10.1); CHLORIDE 98 MMOL/L (99-107); CREATININE 1.01 MG/DL (0.60-1.10); GLUCOSE 146 MG/DL (70-104); MAGNESIUM 1.7 MG/DL (1.5-2.4); PHOSPHORUS 3.1 MG/DL (2.3-4.5); POTASSIUM 3.4 MMOL/L (3.5-5.1); SODIUM 138 MMOL/L (135-145); TOTAL CARBON DIOXIDE 39.2 MMOL/L (24-32); TOTAL PROTEIN 5.8 G/DL (6.4-8.2); eGFR 74 ML/MIN
[2020-01-06] MEDS: dexmedetomidin/NS 400mcg/100ml 100 ML IV SCH ×4 (04:30→18:54)
--- NOTE | 2020-01-06 06:15 | NUR ---
Problems reprioritized. Patient report given, questions answered & plan of care reviewed with Katie GARCÍA.
--- NOTE | 2020-01-06 06:30 | NUR ---
Patient in room CICU 2006. I have received report from RICKY Moreno and had the opportunity to ask questions and assume patient care.
[2020-01-06] MEDS: enoxaparin 40mg/0.4ml syringe SQ SCH (08:00)
[2020-01-06] MEDS: furosemide 40mg/4ml inj IV SCH ×2 (08:00→19:23)
[2020-01-06] MEDS: levoTHYROXINE 88mcg tablet PO SCH (08:00)
[2020-01-06] MEDS: ferrous sulfate 325mg tablet PO SCH (08:00)
[2020-01-06] MEDS: lactobacillus rhamnosus 10,000 MMU CELLS/CAPSULE PO SCH ×2 (08:00→19:23)
[2020-01-06] MEDS: folic acid 1mg tablet PO SCH (08:00)
[2020-01-06] MEDS: piperacillin/tazobactam inj. 3.375 GM in NS 50ml IV SCH ×2 (08:00→16:25)
[2020-01-06] MEDS: pantoprazole 40mg Tablet.DR PO SCH (08:00)
[2020-01-06] MEDS: budesonide 0.5mg/2ml UD nebule IH SCH ×2 (08:25→19:10)
[2020-01-06 09:00] LABS: HYPOCHROMASIA 1+; PLATELET ESTIMATE NORMAL
[2020-01-06 09:01] LABS: ANISOCYTOSIS 1+; MICROCYTOSIS 1+; STOMATOCYTES 1+
[2020-01-06] MEDS: [UNRECOGNIZED DRUG - REMARK] IV SCH ×4 (13:45)
[2020-01-06] MEDS ORDERED: metoclopramide 5 mg/ml inj IV PRN (14:00)
--- NOTE | 2020-01-06 14:45 | NUR ---
Pt extubated without difficulty at 1435. On 4L NC, alert, oriented. Pt's son notified per pt's request
[2020-01-06] MEDS: potassium Cl 20 mEq SR tablet PO PRN (17:37)
--- NOTE | 2020-01-06 18:15 | NUR ---
Patient in room CICU 2006. I have received report from Katie GARCÍA and had the opportunity to ask questions and assume patient care. Patient is alert and oriented and watching TV. Levo is still infusing at 0.01 to support BP. He is on 6L HF and is saturating at 99%. Will continue to monitor.
[2020-01-06] MEDS: atorvastatin 20mg tablet PO SCH (20:05)
[2020-01-06] MEDS: insulin glargine (Lantus) pen - multi-dose SQ SCH (21:00)
[2020-01-06] MEDS: HYDROcodone/acetaminophen 5mg/325mg tablet PO PRN (21:02)
[2020-01-07] VITALS (23 sets, daily range): BP systolic 86–129; BP diastolic 51–81
[2020-01-07] MEDS: piperacillin/tazobactam inj. 3.375 GM in NS 50ml IV SCH ×3 (01:11→15:49)
[2020-01-07] MEDS: HYDROcodone/acetaminophen 5mg/325mg tablet PO PRN ×4 (01:11→19:46)
[2020-01-07] MEDS: mineral oil/petrolatum ophthal oint EACHEYE SCH ×4 (02:00→19:47)
[2020-01-07] MEDS: ipratropium/albuterol 3ml nebule NEB SCH ×5 (02:50→23:02)
[2020-01-07 05:29] LABS: BASOPHILS % (AUTO) 0.4 % (0-1); EOSINOPHILS % (AUTO) 9.7 % (0-6); HEMATOCRIT 27.5 % (42.0-52.0); HEMOGLOBIN 9.2 g/dl (14.0-17.9); LYMPHOCYTES # (AUTO) 2.4 X10'3 (1.1-4.8); LYMPHOCYTES % (AUTO) 22.6 % (21-51); MEAN CORPUSCULAR HEMOGLOBIN 36.2 PG (27.0-31.0); MEAN CORPUSCULAR HGB CONC 33.5 g/dL (33.0-36.5); MEAN CORPUSCULAR VOLUME 108.2 FL (78-98); MEAN PLATELET VOLUME 10.9 FL (7.4-10.4); MONOCYTES # (AUTO) 0.8 X10'3 (0-0.9); MONOCYTES % (AUTO) 7.3 % (2-12); NEUTROPHILS # (AUTO) 6.4 X10'3 (1.8-7.7); PLATELET COUNT 348 X10'3 (140-440); RED BLOOD COUNT 2.54 X10'6 (4.70-6.10); WHITE BLOOD COUNT 10.6 X10'3 (4.5-11.0)
[2020-01-07 05:39] LABS: ALANINE AMINOTRANSFERASE 74 U/L (12-78); ALBUMIN/GLOBULIN RATIO 0.5 (1.1-1.5); ALKALINE PHOSPHATASE 119 IU/L (46-116); ANION GAP 5 (8-16); ASPARTATE AMINO TRANSFERASE 53 U/L (10-37); BILIRUBIN,TOTAL 0.6 MG/DL (0.1-1.0); BLOOD UREA NITROGEN 22 MG/DL (7-18); BUN/CREATININE RATIO 22.2 (5.4-32.0); CALCIUM 8.5 MG/DL (8.5-10.1); CHLORIDE 98 MMOL/L (99-107); CREATININE 0.99 MG/DL (0.60-1.10); GLUCOSE 78 MG/DL (70-104); MAGNESIUM 1.5 MG/DL (1.5-2.4); PHOSPHORUS 3.9 MG/DL (2.3-4.5); SODIUM 139 MMOL/L (135-145); TOTAL CARBON DIOXIDE 35.9 MMOL/L (24-32); TOTAL PROTEIN 6.1 G/DL (6.4-8.2); eGFR 76 ML/MIN
[2020-01-07] MEDS: NORepinephrine 8 MG in NS 250ml IV soln IV SCH (06:29)
--- NOTE | 2020-01-07 06:38 | NUR ---
Problems reprioritized. Patient report given, questions answered & plan of care reviewed with Wing GARCÍA. Addendum: 01/07/20 at 0645 by Wing Botello RN Tiffanie Yoder
[2020-01-07 06:57] LABS: ANISOCYTOSIS 1+; LARGE PLATELETS FEW; PLATELET ESTIMATE NORMAL
[2020-01-07 06:58] LABS: POLYCHROMASIA FEW; STOMATOCYTES 1+
[2020-01-07] MEDS: budesonide 0.5mg/2ml UD nebule IH SCH ×2 (08:00→18:55)
[2020-01-07] MEDS: furosemide 40mg/4ml inj IV SCH ×2 (08:31→19:47)
[2020-01-07] MEDS: pantoprazole 40mg Tablet.DR PO SCH (08:31)
[2020-01-07] MEDS: folic acid 1mg tablet PO SCH (08:33)
[2020-01-07] MEDS: enoxaparin 40mg/0.4ml syringe SQ SCH (08:33)
[2020-01-07] MEDS: levoTHYROXINE 88mcg tablet PO SCH (08:33)
[2020-01-07] MEDS: lactobacillus rhamnosus 10,000 MMU CELLS/CAPSULE PO SCH ×2 (08:33→19:46)
[2020-01-07] MEDS: ferrous sulfate 325mg tablet PO SCH (08:33)
[2020-01-07] MEDS: potassium Cl 20 mEq SR tablet PO PRN ×3 (08:35→17:22)
--- NOTE | 2020-01-07 18:05 | NUR ---
Problems reprioritized. Patient report given, questions answered & plan of care reviewed with Tiffanie GARCÍA.
--- NOTE | 2020-01-07 18:15 | NUR ---
Patient in room CICU 2006. I have received report from Wing GARCÍA and had the opportunity to ask questions and assume patient care. Patient sitting up in bed eating dinner. He is hardly eating due to his throat being sore. VS with normal limits, Temp is 37.0, pain is 7/10 (abdomen) and his is on High Flow NC at 6L. Will continue to monitor.
[2020-01-07] MEDS: atorvastatin 20mg tablet PO SCH (20:20)
[2020-01-07] MEDS: insulin glargine (Lantus) pen - multi-dose SQ SCH (20:20)
[2020-01-07] MEDS: dexmedetomidin/NS 400mcg/100ml 100 ML IV SCH (21:00)
[2020-01-08] VITALS (24 sets, daily range): BP systolic 91–120; BP diastolic 52–76
[2020-01-08] MEDS: piperacillin/tazobactam inj. 3.375 GM in NS 50ml IV SCH ×4 (01:02→23:39)
[2020-01-08] MEDS: dexmedetomidin/NS 400mcg/100ml 100 ML IV SCH (01:03)
[2020-01-08] MEDS: HYDROcodone/acetaminophen 5mg/325mg tablet PO PRN ×2 (01:04→15:54)
[2020-01-08] MEDS: mineral oil/petrolatum ophthal oint EACHEYE SCH (02:00)
[2020-01-08] MEDS: ipratropium/albuterol 3ml nebule NEB SCH ×6 (03:00→23:10)
[2020-01-08] MEDS: normal saline 500ml IV soln 500 ML IV SCH (03:12)
[2020-01-08 03:13] LABS: ALANINE AMINOTRANSFERASE 80 U/L (12-78); ALBUMIN 2.2 G/DL (3.4-5.0); ALBUMIN/GLOBULIN RATIO 0.5 (1.1-1.5); ALKALINE PHOSPHATASE 126 IU/L (46-116); ANION GAP 2 (8-16); ASPARTATE AMINO TRANSFERASE 49 U/L (10-37); BILIRUBIN,TOTAL 0.6 MG/DL (0.1-1.0); BLOOD UREA NITROGEN 25 MG/DL (7-18); BUN/CREATININE RATIO 20.2 (5.4-32.0); CALCIUM 8.7 MG/DL (8.5-10.1); CHLORIDE 98 MMOL/L (99-107); CREATININE 1.24 MG/DL (0.60-1.10); GLUCOSE 101 MG/DL (70-104); MAGNESIUM 1.8 MG/DL (1.5-2.4); PHOSPHORUS 4.2 MG/DL (2.3-4.5); SODIUM 137 MMOL/L (135-145); TOTAL CARBON DIOXIDE 37.3 MMOL/L (24-32); TOTAL PROTEIN 6.8 G/DL (6.4-8.2); eGFR 59 ML/MIN
--- NOTE | 2020-01-08 06:27 | NUR ---
Problems reprioritized. Patient report given, questions answered & plan of care reviewed with Richardson GARCÍA.
[2020-01-08] MEDS: levoTHYROXINE 88mcg tablet PO SCH (07:44)
[2020-01-08] MEDS: folic acid 1mg tablet PO SCH (07:44)
[2020-01-08] MEDS: ferrous sulfate 325mg tablet PO SCH (07:45)
[2020-01-08] MEDS: furosemide 40mg/4ml inj IV SCH ×2 (07:45→20:10)
[2020-01-08] MEDS: pantoprazole 40mg Tablet.DR PO SCH (07:45)
[2020-01-08] MEDS: lactobacillus rhamnosus 10,000 MMU CELLS/CAPSULE PO SCH ×2 (07:45→20:10)
[2020-01-08] MEDS: enoxaparin 40mg/0.4ml syringe SQ SCH (07:46)
[2020-01-08] MEDS: budesonide 0.5mg/2ml UD nebule IH SCH ×2 (08:06→19:24)
[2020-01-08 08:57] LABS: BASOPHILS # (AUTO) 0.1 X10'3 (0-0.2); BASOPHILS % (AUTO) 1.1 % (0-1); EOSINOPHILS # (AUTO) 0.6 X10'3 (0-0.9); HEMATOCRIT 25.8 % (42.0-52.0); LYMPHOCYTES # (AUTO) 1.8 X10'3 (1.1-4.8); LYMPHOCYTES % (AUTO) 18.7 % (21-51); MEAN CORPUSCULAR HEMOGLOBIN 37.9 PG (27.0-31.0); MEAN CORPUSCULAR HGB CONC 34.7 g/dL (33.0-36.5); MEAN CORPUSCULAR VOLUME 109.2 FL (78-98); MONOCYTES # (AUTO) 1.1 X10'3 (0-0.9); MONOCYTES % (AUTO) 11.7 % (2-12); NEUTROPHILS % (AUTO) 62.5 % (42-75); PLATELET COUNT 444 X10'3 (140-440); RED BLOOD COUNT 2.36 X10'6 (4.70-6.10); RED CELL DISTRIBUTION WIDTH 16.7 % (11.5-14.5); WHITE BLOOD COUNT 9.5 X10'3 (4.5-11.0)
--- NOTE | 2020-01-08 12:45 | NUR ---
F/u 01/07: pt extubated. with regular diet. TPN discontinued. 3400 ml out ileostomy, to be expected with new ileostomy. Pt is s/p laparotomy oversew anastomotic leak, drain, and closure of abdominal wound per surgeon note. 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 pt will need diet ed once stable prior to discharge. Rec: 1. continue regular diet, monitor need for low fiber 2. thiamin, folic, MVI supplementation for etoh hx 3. Ileostomy diet ed prior to discharge as appropriate 4. Wt per rx Addendum: 01/08/20 at [address] Amended: Links added.
--- NOTE | 2020-01-08 17:48 | NUR ---
I have reviewed and agree with all medications administered and interventions performed by ALUMNAE SECRETARY Student Dev Anderson
--- NOTE | 2020-01-08 18:30 | NUR ---
Patient in room CICU 2007. I have received report from Richardson GARCÍA and had the opportunity to ask questions and assume patient care.
[2020-01-08] MEDS: atorvastatin 20mg tablet PO SCH (20:10)
[2020-01-08] MEDS: insulin glargine (Lantus) pen - multi-dose SQ SCH (21:00)
[2020-01-09] VITALS (15 sets, daily range): BP systolic 101–146; BP diastolic 57–82
[2020-01-09 03:15] LABS: BASOPHILS # (AUTO) 0.1 X10'3 (0-0.2); BASOPHILS % (AUTO) 0.7 % (0-1); EOSINOPHILS # (AUTO) 0.5 X10'3 (0-0.9); EOSINOPHILS % (AUTO) 6.1 % (0-6); HEMATOCRIT 25.1 % (42.0-52.0); HEMOGLOBIN 8.3 g/dl (14.0-17.9); LYMPHOCYTES # (AUTO) 1.8 X10'3 (1.1-4.8); LYMPHOCYTES % (AUTO) 22.5 % (21-51); MEAN CORPUSCULAR HEMOGLOBIN 35.2 PG (27.0-31.0); MEAN CORPUSCULAR HGB CONC 33.1 g/dL (33.0-36.5); MEAN CORPUSCULAR VOLUME 106.4 FL (78-98); MONOCYTES % (AUTO) 12.7 % (2-12); NEUTROPHILS # (AUTO) 4.7 X10'3 (1.8-7.7); PLATELET COUNT 452 X10'3 (140-440); RED BLOOD COUNT 2.35 X10'6 (4.70-6.10); RED CELL DISTRIBUTION WIDTH 16.7 % (11.5-14.5); WHITE BLOOD COUNT 8.1 X10'3 (4.5-11.0)
[2020-01-09] MEDS: ipratropium/albuterol 3ml nebule NEB SCH ×2 (03:23→06:58)
[2020-01-09 03:25] LABS: ALANINE AMINOTRANSFERASE 67 U/L (12-78); ALBUMIN 2.3 G/DL (3.4-5.0); ALBUMIN/GLOBULIN RATIO 0.5 (1.1-1.5); ALKALINE PHOSPHATASE 113 IU/L (46-116); ANION GAP 5 (8-16); ASPARTATE AMINO TRANSFERASE 31 U/L (10-37); BILIRUBIN,TOTAL 0.5 MG/DL (0.1-1.0); BLOOD UREA NITROGEN 24 MG/DL (7-18); BUN/CREATININE RATIO 21.1 (5.4-32.0); CALCIUM 8.2 MG/DL (8.5-10.1); CHLORIDE 96 MMOL/L (99-107); CREATININE 1.14 MG/DL (0.60-1.10); GLUCOSE 97 MG/DL (70-104); MAGNESIUM 1.6 MG/DL (1.5-2.4); PHOSPHORUS 3.5 MG/DL (2.3-4.5); POTASSIUM 3.1 MMOL/L (3.5-5.1); SODIUM 136 MMOL/L (135-145); TOTAL CARBON DIOXIDE 35.3 MMOL/L (24-32); TOTAL PROTEIN 6.8 G/DL (6.4-8.2); eGFR 65 ML/MIN
--- NOTE | 2020-01-09 06:20 | NUR ---
Problems reprioritized. Patient report given, questions answered & plan of care reviewed with Wing GARCÍA.
--- NOTE | 2020-01-09 06:26 | NUR ---
Patient in room CICU 2006. I have received report from Skip RN and had the opportunity to ask questions and assume patient care.
[2020-01-09] MEDS: budesonide 0.5mg/2ml UD nebule IH SCH (06:58)
[2020-01-09] MEDS: piperacillin/tazobactam inj. 3.375 GM in NS 50ml IV SCH (08:02)
[2020-01-09] MEDS: folic acid 1mg tablet PO SCH (08:02)
[2020-01-09] MEDS: enoxaparin 40mg/0.4ml syringe SQ SCH (08:02)
[2020-01-09] MEDS: furosemide 40mg/4ml inj IV SCH (08:02)
[2020-01-09] MEDS: lactobacillus rhamnosus 10,000 MMU CELLS/CAPSULE PO SCH (08:02)
[2020-01-09] MEDS: ferrous sulfate 325mg tablet PO SCH (08:03)
[2020-01-09] MEDS: pantoprazole 40mg Tablet.DR PO SCH (08:03)
[2020-01-09] MEDS: potassium Cl 20 mEq SR tablet PO PRN ×2 (08:03→12:24)
[2020-01-09] MEDS: levoTHYROXINE 88mcg tablet PO SCH (08:03)
[2020-01-09] MEDS: HYDROcodone/acetaminophen 5mg/325mg tablet PO PRN ×2 (08:03→12:25)
[2020-01-09] MEDS ORDERED: PIPE3.3739 IV (11:16)
--- NOTE | 2020-01-09 13:30 | NUR ---
Problems reprioritized. Patient report given, questions answered & plan of care reviewed with Gaurav RN for transfer to [facility].
--- NOTE | 2020-01-09 13:58 | NUR ---
F/u 01/08: Pt pending transfer to [facility] with PU time 1400 per CM notes. Written ileostomy nutrition therapy education and a list of fiber content in foods with RD contact information placed in patient's chart. Will remain available and f/u for verbal education if pt does not proceed with transfer. Addendum: 01/09/20 at [address] Amended: Links added.
--- NOTE | 2020-01-09 14:40 | NUR ---
Patient safe for transfer to [facility] per MD orders, picked up by [facility], belongings stayed in room with patient, sent with [facility], VS stable, wound vac to be removed at [facility] and wet to dry placed, [facility] stated they would bring our wound vac back.
== END 2020-01-09 14:54 | DRG 792 ==
LOC: SUR 3N 11:38 → PACU 16:15 → ICU 2S 22:48 → SUR 3N 12-31 17:30 → CICU 2S 01-02 09:33
PROVIDERS: ADMIT Family Medicine
PROC: 5A1955Z Respiratory Ventilation, Greater than 96 Consecutive Hours (ICD-10-PCS; 2019-12-23)
PROC: 0BH17EZ Insertion of Endotracheal Airway into Trachea, Via Natural or Artificial Opening (ICD-10-PCS; 2019-12-23)
PROC: 0W9F40Z Drainage of Abdominal Wall with Drainage Device, Percutaneous Endoscopic Approach (ICD-10-PCS; principal; 2019-12-23 16:55)
PROC: 02HV33Z Insertion of Infusion Device into Superior Vena Cava, Percutaneous Approach (ICD-10-PCS; 2019-12-25)
PROC: 0D1B0Z4 Bypass Ileum to Cutaneous, Open Approach (ICD-10-PCS; 2020-01-04)
DX: T81.32XA Disruption of internal operation (surgical) wound, not elsewhere classified, initial encounter (principal); T81.44XA Sepsis following a procedure, initial encounter; Y83.8 Other surgical procedures as the cause of abnormal reaction of the patient, or of later complication, without mention of misadventure at the time of the procedure; J96.01 Acute respiratory failure with hypoxia; F12.90 Cannabis use, unspecified, uncomplicated; F17.200 Nicotine dependence, unspecified, uncomplicated; J44.9 Chronic obstructive pulmonary disease, unspecified; L02.211 Cutaneous abscess of abdominal wall; K57.92 Diverticulitis of intestine, part unspecified, without perforation or abscess without bleeding; K66.0 Peritoneal adhesions (postprocedural) (postinfection); Z90.49 Acquired absence of other specified parts of digestive tract; Z99.81 Dependence on supplemental oxygen
CPT/HCPCS: 36415; 36573; 36600; 71045; 73560; 74018; 74176; 80048; 80053; 80202; 82803; 82948; 83036; 83540; 83550; 83605; 83735; 84100; 84132; 84134; 84145; 84443; 84478; 84484; 85007; 85008; 85018; 85025; 85027; 85610; 85730; 86885; 86900; 86901; 87040; 87070; 87081; 92508; 92616; 93005; 94002; 94003; 94640; 94667; 94668; 94760; 97110; 97116; 97162; 97530; A4618; A6253; A6446; A6449; A7000; C1758; C9113; C9399; G0378; J0330; J0694; J1100; J1650; J1815; J1940; J2001; J2212; J2250; J2270; J2405; J2543; J2704; J2916; J3010; J3370; J3411; J3475; J3480; J3490; J7030; J7040; J7060; J7120; J7626; P9045; P9047; Q9963